=== PATIENT | female | born 1985 | race Caucasian/White ===

== ENCOUNTER → 2017-10-01 16:43 | Outpatient (CLI) | payer OTHER, SELFPAY ==
[2017-10-01 18:37] LABS: Thyroid Stim Hormone (TSH) 5.96 uIU/mL (0.358-3.74)
== END ==
PROVIDERS: Family Provider Family Medicine; PCP Family Medicine; Visit Provider Family Medicine
DX: E03.9 Hypothyroidism, unspecified (principal)
CPT/HCPCS: 36415; 84443

== ENCOUNTER → 2017-10-29 16:32 | Outpatient (CLI) | payer OTHER, SELFPAY ==
[2017-10-29 18:20] LABS: Free T3 2.7 pg/mL (2.18-3.98); Thyroid Stim Hormone (TSH) 1.72 uIU/mL (0.358-3.74)
== END ==
PROVIDERS: Family Provider Family Medicine; PCP Family Medicine; Visit Provider Family Medicine
DX: E03.9 Hypothyroidism, unspecified (principal)
CPT/HCPCS: 36415; 84443; 84481

== ENCOUNTER → 2018-07-22 17:47 | Outpatient (CLI) | payer OTHER, SELFPAY ==
[2018-07-22 18:06] LABS: Hematocrit 38.8 % (37-47); Hemoglobin 12.8 g/dl (12.0-15.0); Mean Corpuscular Hgb 29.6 pg (27.0-32.0); Mean Corpuscular Volume 89.6 fL (81-99); Mean Platelet Vol. 10.1 fl (6.2-12.0); Platelet Count 312 K/mm3 (150-450); RBC Distribution Width CV 12.5 % (11.6-14.6); Red Blood Count 4.33 M/mm3 (4.2-5.4); White Blood Count 7.6 K/mm3 (4.4-11.0)
[2018-07-22 18:12] LABS: Scan Indicated on CBC? Y/N NO
[2018-07-22 18:27] LABS: T4 Total, Thyroxin 7.7 ug/dL (4.8-13.9)
--- OUTSIDE RECORDS SUMMARY | 2018-09-16 23:29 | XMS RPT_ITS ---
:1985 Author Organization [place] Support Name Relationship Address Phone ARCELIA DICKERSON Unavailable [address] + [place] [address] SOEALOCSCH Unavailable [address] + [place] [address] SHANIQUA FRAGA Unavailable [address] [facility] + [place] [address] Arcelia Dickerson Unavailable [address] + [place] [address] SOEALOCSCH Unavailable [address] + [place] [address] Shaniqua Fraga Jr Unavailable [address] [facility] + [place] [address] ARCELIA DICKERSON Unavailable [address] + [place] [address] SOEALOCSCH Unavailable [address] + [place] [address] SHANIQUA FRAGA JR Unavailable [address] [facility] + [place] [address] ARCELIA DICKERSON Unavailable [address] + [place] [address] SOEALOCSCH Unavailable [address] + [place] [address] SHANIQUA FRAGA JR Unavailable [address] [facility] + [place] [address] ARCELIA DICKERSON Unavailable [address] + [place] [address] SOEALOCSCH Unavailable [address] + [place] [address] SHANIQUA FRAGA JR Unavailable [address] [facility] + [place] [address] Care Team Providers Name Role Phone JUAN JONES Referring Unavailable JUAN JONES Attending Unavailable JAMSHID, JUAN Diaz Referring Unavailable REBOLLAR, RENATA DWYER Attending Unavailable GURINDER, JUAN MICHELLE Referring Unavailable REBOLLAR, RENATA DWYER Admitting Unavailable AMBER, RENATA DWYER Attending Unavailable AMBER, RENATA DWYER Referring Unavailable JUAN JONES Referring Unavailable JUAN JONES Referring Unavailable Fairchild, Juan Attending Unavailable Fairchild, Juan Primary Care Unavailable Fairchild, Juan Attending Unavailable Fairchild, Juan Primary Care Unavailable Fermin Locke Attending Unavailable Fairchild, Juan Referring Unavailable Fairchild, Juan Primary Care Unavailable Fairchild, Juan Attending Unavailable Fairchild, Juan Attending Unavailable Fairchild, Juan Primary Care Unavailable Fairchild, Juan Referring Unavailable PROBLEMS PROBLEMS DATE TYPE CONDITION / CODE ATTENDING STATUS SOURCE 07/23/2018 Unknown E03.9 - Juan Fairchild Active [facility] Hypothyroidism, Community unspecified / Hospital E03.9(ICD-10) Repository 07/23/2018 Unknown D51.0 - Vitamin Juan Fairchild Active [facility] B12 deficiency Community anemia due to Hospital intrinsic factor Repository deficiency / D51.0(ICD-10) 12/08/2017 Active Other iron NA Active [facility] deficiency [place] anemias / Repository D50.8(ICD-10) 10/08/2017 Active 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, [place] unspecified / Repository K90.9(ICD-10) 10/08/2017 Active Iron deficiency NA Active [facility] anemia, [place] unspecified / Repository D50.9(ICD-10) PROCEDURES PROCEDURES No Procedure Records FoundRESULTS RESULTS CBC-COMPLETE BLOOD CNT Collected: 07/22/2018 Status: F Source: [place] NO DIFF [facility]:05 PM [facility] TYPE CODE TESTS RESULT OUT OF RANGE REFERENCE UNITS LAB L100.1000 4.4-11.0 K/mm3 Normal WBC 7.6 LAB L100.1200 4.2-5.4 M/mm3 Normal RBC 4.33 LAB L100.1300 12.0-15.0 g/dl Normal HGB 12.8 LAB L100.1400 37-47 % Normal HCT 38.8 LAB L100.1500 81-99 fL Normal MCV 89.6 LAB L100.1600 27.0-32.0 pg Normal MCH 29.6 LAB L100.1700 32-36 g/gl Normal MCHC 33.0 LAB L100.1810 11.6-14.6 % Normal RDW CV 12.5 LAB L100.1820 35.1-43.9 fl Normal RDW SD 41.0 LAB L100.1900 150-450 K/mm3 Normal PLT 312 LAB L100.2000 6.2-12.0 fl Normal MPV 10.1 Performed By: #### L100.0500 #### [facility] [address] [place], [address] T3 TOTAL - TRIIODOTHYRONINE Collected: 07/22/2018 Status: F Source: [place] 5:05 PM [facility] REPOSITORY TYPE CODE TESTS RESULT OUT OF RANGE REFERENCE UNITS LAB L501.9186 0.6-1.81 ng/mL Normal T3 Total 1.00 Performed By: #### L501.9186 #### [facility] [address] [place], [address] T4 TOTAL, THYROXIN Collected: 07/22/2018 Status: F Source: [place] 5:05 PM [facility] REPOSITORY TYPE CODE TESTS RESULT OUT OF RANGE REFERENCE UNITS LAB L501.9310 4.8-13.9 ug/dL T4 Normal THYROXIN 7.7 Performed By: #### L501.9310, L501.9520 #### [facility] [address] [place], [address] THYROID STIM HORMONE Collected: 07/22/2018 Status: F Source: [place] (TSH) 5:05 PM [facility] REPOSITORY TYPE CODE TESTS RESULT OUT OF RANGE REFERENCE UNITS LAB L501.9520 0.358-3.74 uIU/mL High TSH 16.60 Performed By: #### L501.9310, L501.9520 #### [facility] [address] [place], [address] LIPID PROFILE Collected: 05/14/2018 Status: F Source: [place] 8:45 AM [facility] REPOSITORY TYPE CODE TESTS RESULT OUT OF RANGE REFERENCE UNITS LAB L501.4900 200 mg/dL Normal CHOL 198 Result Comment: <200 mg/dL Desirable 200-240 mg/dL Borderline >240 mg/dL High Risk LAB L501.5000 mg/dL Normal TRIG 168 Result Comment: The drugs N-Acetylcysteine and Metamizole may falsely depress this assay. Serum Triglycerides Reference Interval Normal <150 mg/dL Borderline high 150 - 199 mg/dL High 200 - 499 mg/dL Very High > or = 500 mg/dL LAB L501.6400 mg/dL Low HDL 37 Result Comment: The drugs N-Acetylcysteine and Metamizole may falsely depress this assay. Reference Range HDL <40 mg/dL Low HDL Cholesterol HDL >or= 60 mg/dL High HDL Cholesterol LAB L501.6500 0-130 mg/dL Normal LDL 127 LAB L501.6600 5-40 mg/dL Normal VLDL 34 Performed By: #### L500.4100, L501.0100 #### [facility] [address] [place], [address] GLUCOSE Collected: 05/14/2018 Status: F Source: [place] 8:45 AM [facility] REPOSITORY TYPE CODE TESTS RESULT OUT OF RANGE REFERENCE UNITS LAB L501.0100 74-106 mg/dL Normal GLU 85 Result Comment: Please note revised GLUCOSE reference range effective 2017. Performed By: #### L500.4100, L501.0100 #### [facility] [address] [place], [address] JOE ABS GR + CBC Collected: 04/09/2018 Status: F Source: [place] 1:00 PM [facility] REPOSITORY TYPE CODE TESTS RESULT OUT OF REFERENCE UNITS RANGE LAB WWBC 3.70-11.00 k/uL [facility] WBC 7.63 LAB WRBC 3.90-5.20 m/uL [place] RBC 4.27 LAB WHGB 11.5-15.5 g/dL [place] Hemoglobin 13.0 LAB WHCT 36.0-46.0 % [place] Hematocrit 39.2 LAB WMCV 80.0-100.0 fL [place] MCV 91.8 LAB WMCH 26.0-34.0 pg [place] MCH 30.4 LAB WMCHC 30.5-36.0 g/dL [place] MCHC 33.2 LAB WRDW 11.5-15.0 % [place] RDW 12.5 LAB WPLT 150-400 k/uL [place] Platelet Cnt 259 LAB WMPV 9.0-12.7 fL Joe MPV 9.7 Result Comment: Test performed at: [facility] [place], [address] [place] [address]. LAB ABGRAN 1.45-7.50 k/uL Absol Gran 5.07 Count IRON AND TIBC Collected: 04/09/2018 Status: F Source: [place] 1:00 PM [facility] REPOSITORY TYPE CODE TESTS RESULT OUT OF REFERENCE UNITS RANGE LAB IRN 41-186 ug/dL Iron 93 LAB TIBC 232-386 ug/dL TIBC 312 LAB SAT 15-57 % Transferrin Saturatn 30 Performed By: #### IRON, FERR #### [facility] [address] [address] FERRITIN Collected: 04/09/2018 Status: F Source: [place] 1:00 PM [facility] REPOSITORY TYPE CODE TESTS RESULT OUT OF REFERENCE UNITS RANGE LAB FERR 14.7-205.1 ng/mL Ferritin 98.7 Performed By: #### IRON, FERR #### [facility] [address] [address] JOE CBC Collected: 12/08/2017 Status: F Source: [place] 11:50 AM [facility] REPOSITORY TYPE CODE TESTS RESULT OUT OF REFERENCE UNITS RANGE LAB WWBC 3.70-11.00 k/uL [place] WBC 8.04 LAB WRBC 3.90-5.20 m/uL [place] RBC 4.04 LAB WHGB 11.5-15.5 g/dL [place] Hemoglobin 12.5 LAB WHCT 36.0-46.0 % [place] Hematocrit 37.3 LAB WMCV 80.0-100.0 fL [place] MCV 92.3 LAB WMCH 26.0-34.0 pg [place] MCH 30.9 LAB WMCHC 30.5-36.0 g/dL [place] MCHC 33.5 LAB WRDW 11.5-15.0 % [facility] RDW 12.8 LAB WPLT 150-400 k/uL [place] Platelet Cnt 291 LAB WMPV 9.0-12.7 fL Joe MPV 10.1 Result Comment: Test performed at: [facility] [place], [address] [place] [address]. IRON AND TIBC Collected: 12/08/2017 Status: F Source: [place] 11:50 AM [facility] REPOSITORY TYPE CODE TESTS RESULT OUT OF REFERENCE UNITS RANGE LAB IRN 41-186 ug/dL Iron 83 LAB TIBC 232-386 ug/dL TIBC 263 LAB SAT 15-57 % Transferrin Saturatn 32 Performed By: #### IRON, FERR #### [facility] [address] [address] FERRITIN Collected: 12/08/2017 Status: F Source: [place] 11:50 AM [facility] REPOSITORY TYPE CODE TESTS RESULT OUT OF REFERENCE UNITS RANGE LAB FERR 14.7-205.1 ng/mL Ferritin 147.3 Performed By: #### IRON, FERR #### [facility] [address] [address] NURSING PROG Observed: 11/18/2017 Status: COMPLETED Source: [place] 9:05 AM [facility] REPOSITORY HNO ID: [id number] Author: Annamarie Sanchez RN Service: (none) Author Type: Registered Nurse Type: Nursing Progress Note Filed: 11/18/2017 9:10 AM Note Text: Patient did not experience a fall prior to discharge. Patient did not experience a burn prior to discharge. Annamarie Sanchez RN PT ED Observed: 11/18/2017 Status: COMPLETED Source: [place] 9:03 AM [facility] REPOSITORY HNO ID: [id number] Author: Annamarie Sanchez RN Service: (none) Author Type: Registered Nurse Type: Patient Education Filed: 11/18/2017 9:04 AM Note Text: POST OP LEARNING RESPONSE INSTRUCTION PROVIDED TO: Patient and family member METHOD OF INSTRUCTION: Individual instruction Written instruction - handouts Verbal instruction PATIENT / FAMILY RESPONSE: Information received as demonstrated by interest and questions FOLLOW-UP PLAN: Follow up phone call. Contact information given. SUPPLEMENTAL MATERIAL: Procedure discharge instructions REFERRAL (RECOMMENDATION): None Electronically Signed By: Annamarie Sanchez RN In Department: AMBULATORY SURGERY NURSING PROG Observed: 11/18/2017 Status: COMPLETED Source: [place] 8:18 AM [facility] REPOSITORY HNO ID: [id number] Author: Annamarie Sanchez RN Service: (none) Author Type: Registered Nurse Type: Nursing Progress Note Filed: 11/18/2017 9:12 AM Note Text: Arrived in phase II via cart. Left lateral position. Sedated, but responds to verbal stimuli. Color normal; skin warm and dry. Respirations wnl and unlabored. Abdomen soft and with + bowel sounds in quads X 4. Family at bedside. Patient resting comfortably. Dr. Rebollar at bedside to review procedure and recommendations. Annamarie Sanchez RN NURSING PROG Observed: 11/18/2017 Status: COMPLETED Source: [place] 8:17 AM [facility] REPOSITORY HNO ID: [id number] Author: Alexandria Stark RN Service: Nursing Author Type: Registered Nurse Type: Nursing Progress Note Filed: 11/18/2017 8:17 AM Note Text: Patient did not experience a fall within the Intraoperative area. Patient did not experience a burn within the Intraoperative area. Alexandria Stark RN NURSING PROG Observed: 11/18/2017 Status: COMPLETED Source: [place] 7:27 AM [facility] REPOSITORY HNO ID: [id number] Author: Annamarie Sanchez RN Service: (none) Author Type: Registered Nurse Type: Nursing Progress Note Filed: 11/18/2017 7:27 AM Note Text: [facility] PRE-OP NURSING HAND OFF NOTE SBAR Hand off given to Alexandria Stark RN. Hand off was communicated verbally and at the patient's bedside and all questions were answered. FALLS/CABALLERO Patient did not experience a fall within the Preoperative area. Patient did not experience a burn within the Preoperative area. Annamarie Sanchez RN PT ED Observed: 11/18/2017 Status: COMPLETED Source: [place] 7:06 AM [facility] REPOSITORY HNO ID: [id number] Author: Annamarie Sanchez RN Service: (none) Author Type: Registered Nurse Type: Patient Education Filed: 11/18/2017 7:08 AM Note Text: Discharge Instructions were reviewed pre-operatively with the patient. All questions and concerns were addressed. Annamarie Sanchez RN PRE OP LEARNING ASSESSMENT PROCEDURE/SURGERY: GI PROCEDURES: Colonoscopy and EGD READINESS TO LEARN COGNITIVE ABILITY: Alert and oriented MOTIVATION TO LEARN: Interested FAMILY SUPPORT: Unable to assess - Family not present PATIENT LEARNS BEST BY: Multiple Methods FACTORS AFFECTING LEARNING: None PHYSICAL LIMITATIONS AFFECTING LEARNING: None Electronically Signed By: Annamarie Sanchez RN In Department: AMBULATORY SURGERY HISTORY PHYSICAL Observed: 11/17/2017 Status: COMPLETED Source: [place] 8:08 PM [facility] REPOSITORY HNO ID: [id number] Author: Renata Rebollar Service: (none) Author Type: Physician Type: HANDP Filed: 11/17/2017 8:09 PM Note Text: Hazel Fraga 1985 ? REFERRING PHYSICIAN: Juan Fairchild MD ? CHIEF COMPLAINT: New Patient; for colonoscopy; and iron defiency anemia ? HPI: The patient is a 32 year old female presents with anemia. Persistent despite appropriate treatment. Has rare heartburn. Denies melena. Denies blood in stools. No family history of colon cancer. ? PAST MEDICAL HISTORY Diagnosis Date - Esophageal reflux ? - Migraines ? - Pernicious anemia ? - Unspecified hypothyroidism ? - Vitamin B 12 deficiency ? ? ? PAST SURGICAL HISTORY Procedure Laterality Date - DELIVERY ONLY ? 2003 AND 2007 ? , low cervical x 2 ? PAST INJURIES Denies head injuries, has had finger fractures ? Current Outpatient Prescriptions: nortriptyline (PAMELOR) 50 mg capsule ? levothyroxine (SYNTHROID) 200 mcg tablet Take 200 mcg by mouth once daily. cyanocobalamin 1,000 mcg/mL soln Inject 1 mL intramuscularly once every month. Syringe with Needle, Disp, 3 mL 25 x 1 1/2 syrg For use with monthly home B12 injections. acetaminophen (TYLENOL EXTRA STRENGTH) 500 mg tablet Take 500 mg by mouth as needed. ? ALLERGIES: Biaxin [Clarithromycin]; Seasonal Allergies ? PERSONAL HISTORY: Social History Marital status: Spouse name: Sandor Years of education: Number of children: 1 Occupational History Occupation Employer Comment [employer]* Social History Main Topics Smoking status: Never Smoker Smokeless status: Never Used Alcohol use: Yes Comment: Occasionally Drug use: No Sexual activity: Yes Partners with: Male ? FAMILY HISTORY Problem Relation Age of Onset - Thyroid Mother ? - Heart Father ? - Heart Other ? ? ? MATERNAL GREAT AUNT - Breast Cancer Other ? ? ? MATERNAL GREAT AUNT - Heart Maternal Grandfather ? - Cancer Maternal Grandfather ? - Cancer Maternal Aunt ? ? ? Thyroid cancer ? REVIEW OF SYSTEMS: General: The patient denies fatigue, denies weight loss, denies weight gain, denies feeling hot, and denies feelings of cold. Eyes: The patient denies glaucoma, denies eye injury/surgery, wears glasses or contacts. Ear/Nose/Throat: The patient NOTES allergies, denies hayfever, denies ear infections, and denies bloody noses. Cardiovascular: The patient denies chest pain, denies heart disease, denies high blood pressure,denies cardiac stent, denies prior heart attack, denies irregular heart beat, denies high cholesterol, denies poor circulation, denies heart failure, other cardiac issues, denies claudication, denies cold feet, denies peripheral arterial stent. Respiratory: The patient denies tuberculosis, denies pneumonia, denies frequent cough, denies pulmonary embolism, denies shortness of breath, and denies coughing up blood. Gastrointestinal: The patient denies difficulty swallowing, denies acid reflux, denies ulcers, denies vomiting, denies jaundice/hepatitis, denies gallbladder problems, denies black or tarry stools, denies hemorrhoids, denies bleeding from rectum, denies diverticulitis, denies constipation, denies diarrhea, denies loss of stool control, and denies hernias. Kidney/Bladder: The patient denies kidney stones, denies urine infections, and denies bloody urine. Skin: The patient denies a history of skin cancer, denies bleeding/changing moles, and denies a history of skin rash. Neurologic: The patient denies a history of epilepsy/convulsions, NOTES headaches, denies head/spinal injuries, and denies stroke/TIA. Psychiatric: The patient denies psychiatric medications, denies depression, and denies voices, denies substance abuse. Endocrine: The patient NOTES thyroid disorders, denies diabetes, and denies hormonal problems. Hematologic: The patient NOTES a history of bruising, denies bleeding, and NOTES anemia, denies blood clots. Infections: The patient denies a history of measles and mumps, denies rheumatic fever, and denies sexually transmitted diseases. Musculoskeletal: The patient denies back pain/injury, denies back problems, denies sciatica, denies knee/foot trouble, denies arthritis, or denies gout. ?? PHYSICAL EXAMINATION: General: The patient is 32 year old female, well nourished, well hydrated in no acute distress. The patient is oriented to time, place, and person. VITALS: Blood pressure 120/86, pulse 88, height 167.6 cm (5' 6), weight 86.6 kg (191 lb) Body mass index is 30.83 kg/(m2). Head ? Normocephalic. EOM intact with sclera clear and no icterus noted. Mouth with mucus membranes moist. Neck - supple with no jugular venous distention noted. Trachea is midline.. No masses noted. Lungs ? clear to auscultationd. Normal breath sounds . No rales/rhonchi/wheezing noted. No labored breathing noted, such as retractions. Heart ? normal S1 and S2 auscultated. No rubs/clicks/murmurs noted. Regular rate. Abdomen ? soft and benign. Normal bowel sounds. No abdominal bruits noted. Extremities ? no calf tenderness noted. . Skin ? normal skin integrity. Neurological ? non focal Psych ? calm and appropriate ? IMPRESSION: anemia ? PLAN: I have discussed the above with the patient. I have offered evaluation with colonoscopy and EGD. I have explained the procedure to the patient. I have counseled the patient as to the risks of the procedure, including but not limited to: infection, bleeding, injury to any blood vessels/nerves, scar tissue, injury to any intraabdominal organs such as liver/spleen, perforation of the GI tract, inability to complete the procedure, complications of anesthesia, etc. ? the patient understands. The patient wishes to proceed. Colon cleansing preparation explained to patient. ? I have answered all questions to the patient?s satisfaction and the patient has no further questions. . Diagnoses: (D50.8) Other iron deficiency anemia (primary encounter diagnosis) ? 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 Is patient in pain?: No Allergies No Known Allergies Allergy (Verified 11/10/17 17:29) Medications Levothyroxine [Synthroid] 200 mcg PO DAILY 12/05/14 [History Confirmed 11/10/17] Multivitamin [Multiple Vitamins] 1 ea PO DAILY 02/09/17 [History Confirmed 11/10/17] amoxicillin 875 mg-potassium clavulanate 125 mg tablet 1 tab PO Q12H 10 Days #20 tab 11/10/17 [Rx Confirmed 11/10/17] meclizine 25 mg tablet 25 mg PO BID PRN #10 tab 11/10/17 [Rx Confirmed 11/10/17] nortriptyline 50 mg capsule PO 15 Days #30 11/10/17 [History Confirmed 11/10/17] PFSH Medical History history of ablation (Acute) Surgical History History of (Acute) History of D AND C (Acute) Social History Smoking Status: Never smoker alcohol intake: never HPI HPI Details: HAZEL FRAGA, is a 32 F who presents to the office today for 5 days of sinus pressure and pain particularly to just above her jaws. Patient additionally complains of vertigo and states that she has had cases of vertigo in the past due to colds and sinus infections. She denies any change in mental status, falls or near syncopal episodes. No fever, chills, sweats. No nausea, vomiting, diarrhea. No other associated symptoms or alleviating/aggravating factors. ROS Const Constitutional: No fever(s), chills, night sweats, headache(s), abnormal sleep pattern or weakness Eyes Eyes: No visual disturbances ENT ENT: Positive for nasal congestion, sinus pressure, sinus pain and nasal discharge; no headache(s), ear pain, sore throat or abnormal hearing Resp Respiratory: No cough or shortness of breath Cardio Cardiology: No shortness of breath, irregular heart rhythm or fast heart rate Musc Musculoskeletal: No abnormal walking or tingling Neuro Neurology: Positive for unsteady gait/balance and dizziness; no headache(s), confusion, weakness, abnormal hearing, abnormal walking, lack of coordination, memory loss, fainting, tingling or visual disturbances Psych Psychiatric: No abnormal sleep pattern, No confusion, No memory loss Exam Const General: cooperative, healthy appearing HENMT Head: normal to inspection Ears: hearing grossly normal bilaterally, TM's normal bilaterally, EAC's normal Nose: nasal discharge purulent Face and sinus: sinus tenderness frontal and maxillary Mouth: oral mucosae normal Throat: abnormal tonsil bilaterally, postnasal drainage Resp Effort AND Inspection: normal respiratory effort Auscultation: Bilateral: Clear to Auscultation Cardio Palpation: normal PMI Rate: regular rate Rhythm: regular rhythm Neuro General: alert, CN's II-XI intact bilaterally, oriented x3, No [place] Hallpike Cranial Nerves: PERRL Cognition: normal cognition Speech: speech normal Gait: normal gait Motor: muscle tone normal throughout, strength 5/5 throughout, no pronator drift Sensory Exam: no sensory deficits noted Psych Appearance: grossly normal Mental Status: mental status grossly normal Assessment AND Plan Problems 1. Acute non-recurrent maxillary sinusitis J01.00 Status Acute 2. Vertigo R42 Status Acute Plan Antivert and Augmentin as prescribed today. Patient advised to follow-up with her PCP in 3-5 days or sooner if worse. Encouraged to get plenty of rest, drink lots of clear liquids, and use Tylenol or Ibuprofen (unless contraindicated) for fever and comfort. Patient also educated on other symptomatic management techniques. To be seen in 7-10 days if no improvement; sooner if worsening of symptoms. Patient advised of potential red flags when appropriate report to the ED. Patient verbalized understanding of all the above. This note was generated with Arc[employer] software. It may contain incorrect words, spelling, and punctuation that were not noted in checking the note before signing. Medications New: amoxicillin-pot clavulanate 875-125 mg (Aug tab PO Q12H 10 days J01.90 BLUE Abbott mentin) Discontinued: hydrocodone-acetaminophen 5-325 mg 1 - 2 ea PO Q6H PRN PRN Mod-Severe Blue D[place] Discontinued Reason: Pt no longer takin () ing Coding Level of Care Code Off vis,new,level 3 Diagnoses Acute non-recurrent maxillary sinusitis J01.00 Sinusitis location: maxillary Recurrence: non-recurrent Vertigo R42 11/10/17 3705 <Electronically signed by Fermin NAJERA> Date Fermin NAJERA Cosigner Signature: Date (if applicable) CC: FREE T3 Collected: 10/29/2017 Status: F Source: [place] 4:33 PM [facility] REPOSITORY TYPE CODE TESTS RESULT OUT OF RANGE REFERENCE UNITS LAB L501.59620 2.18-3.98 pg/mL Normal FREE T3 2.7 Performed By: #### L501.01677, L501.9520 #### [facility] [address] [place], [place], [address] THYROID STIM HORMONE Collected: 10/29/2017 Status: F Source: [place] (TSH) 4:33 PM [facility] REPOSITORY TYPE CODE TESTS RESULT OUT OF RANGE REFERENCE UNITS LAB L501.9520 0.358-3.74 uIU/mL Normal TSH 1.72 Performed By: #### L501.20437, L501.2620 #### [facility] [address] [place], [place], [address] PROGRESS Observed: 10/24/2017 Status: COMPLETED Source: [place] 9:45 PM [facility] REPOSITORY HNO ID: [id number] Author: Renata Rebollar Service: (none) Author Type: Physician Type: Progress Notes Filed: 10/25/2017 4:07 PM Note Text: Hazel Fraga 1985 REFERRING PHYSICIAN: Juan Fairchild MD CHIEF COMPLAINT: New Patient; for colonoscopy; and iron defiency anemia HPI: The patient is a 32 year old female presents with anemia. Persistent despite appropriate treatment. Has rare heartburn. Denies melena. Denies blood in stools. No family history of colon cancer. PAST MEDICAL HISTORY Diagnosis Date - Esophageal reflux - Migraines - Pernicious anemia - Unspecified hypothyroidism - Vitamin B 12 deficiency PAST SURGICAL HISTORY Procedure Laterality Date - DELIVERY ONLY 2003 AND 2007 , low cervical x 2 PAST INJURIES Denies head injuries, has had finger fractures Current Outpatient Prescriptions: nortriptyline (PAMELOR) 50 mg capsule levothyroxine (SYNTHROID) 200 mcg tablet Take 200 mcg by mouth once daily. cyanocobalamin 1,000 mcg/mL soln Inject 1 mL intramuscularly once every month. Syringe with Needle, Disp, 3 mL 25 x 1 1/2 syrg For use with monthly home B12 injections. acetaminophen (TYLENOL EXTRA STRENGTH) 500 mg tablet Take 500 mg by mouth as needed. ALLERGIES: Biaxin [Clarithromycin]; Seasonal Allergies PERSONAL HISTORY: Social History Marital status: Spouse name: Sandor Years of education: Number of children: 1 Occupational History Occupation Employer [employer] Social History Main Topics Smoking status: Never Smoker Smokeless status: Never Used Alcohol use: Yes Comment: Occasionally Drug use: No Sexual activity: Yes Partners with: Male FAMILY HISTORY Problem Relation Age of Onset - Thyroid Mother - Heart Father - Heart Other MATERNAL GREAT AUNT - Breast Cancer Other MATERNAL GREAT AUNT - Heart Maternal Grandfather - Cancer Maternal Grandfather - Cancer Maternal Aunt Thyroid cancer REVIEW OF SYSTEMS: General: The patient denies fatigue, denies weight loss, denies weight gain, denies feeling hot, and denies feelings of cold. Eyes: The patient denies glaucoma, denies eye injury/surgery, wears glasses or contacts. Ear/Nose/Throat: The patient NOTES allergies, denies hayfever, denies ear infections, and denies bloody noses. Cardiovascular: The patient denies chest pain, denies heart disease, denies high blood pressure,denies cardiac stent, denies prior heart attack, denies irregular heart beat, denies high cholesterol, denies poor circulation, denies heart failure, other cardiac issues, denies claudication, denies cold feet, denies peripheral arterial stent. Respiratory: The patient denies tuberculosis, denies pneumonia, denies frequent cough, denies pulmonary embolism, denies shortness of breath, and denies coughing up blood. Gastrointestinal: The patient denies difficulty swallowing, denies acid reflux, denies ulcers, denies vomiting, denies jaundice/hepatitis, denies gallbladder problems, denies black or tarry stools, denies hemorrhoids, denies bleeding from rectum, denies diverticulitis, denies constipation, denies diarrhea, denies loss of stool control, and denies hernias. Kidney/Bladder: The patient denies kidney stones, denies urine infections, and denies bloody urine. Skin: The patient denies a history of skin cancer, denies bleeding/changing moles, and denies a history of skin rash. Neurologic: The patient denies a history of epilepsy/convulsions, NOTES headaches, denies head/spinal injuries, and denies stroke/TIA. Psychiatric: The patient denies psychiatric medications, denies depression, and denies voices, denies substance abuse. Endocrine: The patient NOTES thyroid disorders, denies diabetes, and denies hormonal problems. Hematologic: The patient NOTES a history of bruising, denies bleeding, and NOTES anemia, denies blood clots. Infections: The patient denies a history of measles and mumps, denies rheumatic fever, and denies sexually transmitted diseases. Musculoskeletal: The patient denies back pain/injury, denies back problems, denies sciatica, denies knee/foot trouble, denies arthritis, or denies gout. PHYSICAL EXAMINATION: General: The patient is 32 year old female, well nourished, well hydrated in no acute distress. The patient is oriented to time, place, and person. VITALS: Blood pressure 120/86, pulse 88, height 167.6 cm (5' 6), weight 86.6 kg (191 lb) Body mass index is 30.83 kg/(m2). Head ? Normocephalic. EOM intact with sclera clear and no icterus noted. Mouth with mucus membranes moist. Neck - supple with no jugular venous distention noted. Trachea is midline.. No masses noted. Lungs ? clear to auscultationd. Normal breath sounds . No rales/rhonchi/wheezing noted. No labored breathing noted, such as retractions. Heart ? normal S1 and S2 auscultated. No rubs/clicks/murmurs noted. Regular rate. Abdomen ? soft and benign. Normal bowel sounds. No abdominal bruits noted. Extremities ? no calf tenderness noted. . Skin ? normal skin integrity. Neurological ? non focal Psych ? calm and appropriate Assessment IMPRESSION: anemia PLAN: I have discussed the above with the patient. I have offered evaluation with colonoscopy and EGD. I have explained the procedure to the patient. I have counseled the patient as to the risks of the procedure, including but not limited to: infection, bleeding, injury to any blood vessels/nerves, scar tissue, injury to any intraabdominal organs such as liver/spleen, perforation of the GI tract, inability to complete the procedure, complications of anesthesia, etc. ? the patient understands. The patient wishes to proceed. Colon cleansing preparation explained to patient. I have answered all questions to the patient?s satisfaction and the patient has no further questions. Greater than 50% of this patient encounter was dedicated to face to face discussion with the patient. . Diagnoses: (D50.8) Other iron deficiency anemia (primary encounter diagnosis) Renata Rebollar MD CNOV Observed: 10/21/2017 Status: COMPLETED Source: [place] 3:40 PM [facility] Office Visit ([facility]) HAZEL FRAGA ([id number]) 1985 F Date Time Provider Department 10/21/17 3:40 PM RENATA REBOLLAR During your visit today, we recorded the following information about you: Pulse Blood pressure Weight Height 88/minute 120/86 86.6 kg 1.676 m Shaneka Omalley Yusra 10/21/2017 4:04 PM Signed REVIEW OF SYSTEMS: General: The patient denies fatigue, denies weight loss, denies weight gain, denies feeling hot, and denies feelings of cold. Eyes: The patient denies glaucoma, denies eye injury/surgery, wears glasses or contacts. Ear/Nose/Throat: The patient NOTES allergies, denies hayfever, denies ear infections, and denies bloody noses. Cardiovascular: The patient denies chest pain, denies heart disease, denies high blood pressure,denies cardiac stent, denies prior heart attack, denies irregular heart beat, denies high cholesterol, denies poor circulation, denies heart failure, other cardiac issues, denies claudication, denies cold feet, denies peripheral arterial stent. Respiratory: The patient denies tuberculosis, denies pneumonia, denies frequent cough, denies pulmonary embolism, denies shortness of breath, and denies coughing up blood. Gastrointestinal: The patient denies difficulty swallowing, denies acid reflux, denies ulcers, denies vomiting, denies jaundice/hepatitis, denies gallbladder problems, denies black or tarry stools, denies hemorrhoids, denies bleeding from rectum, denies diverticulitis, denies constipation, denies diarrhea, denies loss of stool control, and denies hernias. Kidney/Bladder: The patient denies kidney stones, denies urine infections, and denies bloody urine. Skin: The patient denies a history of skin cancer, denies bleeding/changing moles, and denies a history of skin rash. Neurologic: The patient denies a history of epilepsy/convulsions, NOTES headaches, denies head/spinal injuries, and denies stroke/TIA. Psychiatric: The patient denies psychiatric medications, denies depression, and denies voices, denies substance abuse. Endocrine: The patient NOTES thyroid disorders, denies diabetes, and denies hormonal problems. Hematologic: The patient NOTES a history of bruising, denies bleeding, and NOTES anemia, denies blood clots. Infections: The patient denies a history of measles and mumps, denies rheumatic fever, and denies sexually transmitted diseases. Musculoskeletal: The patient denies back pain/injury, denies back problems, denies sciatica, denies knee/foot trouble, denies arthritis, or denies gout. When was patient's last Mammogram screening? N/A Last Colonoscopy: None Shaneka Rebollar MD 10/25/2017 4:07 PM Signed Hazel Frgaa 1985 REFERRING PHYSICIAN: Juan Fairchild MD CHIEF COMPLAINT: New Patient; for colonoscopy; and iron defiency anemia HPI: The patient is a 32 year old female presents with anemia. Persistent despite appropriate treatment. Has rare heartburn. Denies melena. Denies blood in stools. No family history of colon cancer. PAST MEDICAL HISTORY Diagnosis Date - Esophageal reflux - Migraines - Pernicious anemia - Unspecified hypothyroidism - Vitamin B 12 deficiency PAST SURGICAL HISTORY Procedure Laterality Date - DELIVERY ONLY 2003 ANDamp; 2007 , low cervical x 2 PAST INJURIES Denies head injuries, has had finger fractures Current Outpatient Prescriptions: nortriptyline (PAMELOR) 50 mg capsule levothyroxine (SYNTHROID) 200 mcg tablet Take 200 mcg by mouth once daily. cyanocobalamin 1,000 mcg/mL soln Inject 1 mL intramuscularly once every month. Syringe with Needle, Disp, 3 mL 25 x 1 1/2 ANDquot; syrg For use with monthly home B12 injections. acetaminophen (TYLENOL EXTRA STRENGTH) 500 mg tablet Take 500 mg by mouth as needed. ALLERGIES: Biaxin [Clarithromycin]; Seasonal Allergies PERSONAL HISTORY: Social History Marital status: Spouse name: Sandor Years of education: Number of children: 1 Occupational History Occupation Employer [employer]* Social History Main Topics Smoking status: Never Smoker Smokeless status: Never Used Alcohol use: Yes Comment: Occasionally Drug use: No Sexual activity: Yes Partners with: Male FAMILY HISTORY Problem Relation Age of Onset - Thyroid Mother - Heart Father - Heart Other MATERNAL GREAT AUNT - Breast Cancer Other MATERNAL GREAT AUNT - Heart Maternal Grandfather - Cancer Maternal Grandfather - Cancer Maternal Aunt Thyroid cancer REVIEW OF SYSTEMS: General: The patient denies fatigue, denies weight loss, denies weight gain, denies feeling hot, and denies feelings of cold. Eyes: The patient denies glaucoma, denies eye injury/surgery, wears glasses or contacts. Ear/Nose/Throat: The patient NOTES allergies, denies hayfever, denies ear infections, and denies bloody noses. Cardiovascular: The patient denies chest pain, denies heart disease, denies high blood pressure,denies cardiac stent, denies prior heart attack, denies irregular heart beat, denies high cholesterol, denies poor circulation, denies heart failure, other cardiac issues, denies claudication, denies cold feet, denies peripheral arterial stent. Respiratory: The patient denies tuberculosis, denies pneumonia, denies frequent cough, denies pulmonary embolism, denies shortness of breath, and denies coughing up blood. Gastrointestinal: The patient denies difficulty swallowing, denies acid reflux, denies ulcers, denies vomiting, denies jaundice/hepatitis, denies gallbladder problems, denies black or tarry stools, denies hemorrhoids, denies bleeding from rectum, denies diverticulitis, denies constipation, denies diarrhea, denies loss of stool control, and denies hernias. Kidney/Bladder: The patient denies kidney stones, denies urine infections, and denies bloody urine. Skin: The patient denies a history of skin cancer, denies bleeding/changing moles, and denies a history of skin rash. Neurologic: The patient denies a history of epilepsy/convulsions, NOTES headaches, denies head/spinal injuries, and denies stroke/TIA. Psychiatric: The patient denies psychiatric medications, denies depression, and denies voices, denies substance abuse. Endocrine: The patient NOTES thyroid disorders, denies diabetes, and denies hormonal problems. Hematologic: The patient NOTES a history of bruising, denies bleeding, and NOTES anemia, denies blood clots. Infections: The patient denies a history of measles and mumps, denies rheumatic fever, and denies sexually transmitted diseases. Musculoskeletal: The patient denies back pain/injury, denies back problems, denies sciatica, denies knee/foot trouble, denies arthritis, or denies gout. PHYSICAL EXAMINATION: General: The patient is 32 year old female, well nourished, well hydrated in no acute distress. The patient is oriented to time, place, and person. VITALS: Blood pressure 120/86, pulse 88, height 167.6 cm (5' 6ANDquot;), weight 86.6 kg (191 lb) Body mass index is 30.83 kg/(m2). Head ? Normocephalic. EOM intact with sclera clear and no icterus noted. Mouth with mucus membranes moist. Neck - supple with no jugular venous distention noted. Trachea is midline.. No masses noted. Lungs ? clear to auscultationd. Normal breath sounds . No rales/rhonchi/wheezing noted. No labored breathing noted, such as retractions. Heart ? normal S1 and S2 auscultated. No rubs/clicks/murmurs noted. Regular rate. Abdomen ? soft and benign. Normal bowel sounds. No abdominal bruits noted. Extremities ? no calf tenderness noted. . Skin ? normal skin integrity. Neurological ? non focal Psych ? calm and appropriate Assessment IMPRESSION: anemia PLAN: I have discussed the above with the patient. I have offered evaluation with colonoscopy and EGD. I have explained the procedure to the patient. I have counseled the patient as to the risks of the procedure, including but not limited to: infection, bleeding, injury to any blood vessels/nerves, scar tissue, injury to any intraabdominal organs such as liver/spleen, perforation of the GI tract, inability to complete the procedure, complications of anesthesia, etc. ? the patient understands. The patient wishes to proceed. Colon cleansing preparation explained to patient. I have answered all questions to the patient?s satisfaction and the patient has no further questions. Greater than 50% of this patient encounter was dedicated to face to face discussion with the patient. . Diagnoses: (D50.8) Other iron deficiency anemia (primary encounter diagnosis) Renata Rebollar MD Referring Provider: JUAN FAIRCHILD [[id number]] Allergies As of Date: 10/21/2017 Noted Allergy Reaction BIAXIN (CLARITHROMYCIN) 04/01/2007 11 - Vomiting SEASONAL ALLERGIES 05/24/2015 14 - Other: See Comments Comments: nasal congestion and drainage Date Reviewed: 10/21/2017 Reviewed by: Shaneka Omalley Ma - Fully Assessed Reason for Visit: New Patient [172] for colonoscopy [Other] iron defiency anemia [Other] Primary Visit Diagnosis:Other iron deficiency anemia [D50.8] Order(s):ROSY PT ED DIGESTIVE DISEASES [[id number]] Order #: [id number]. #:[id number]: 1 [] peg 3350-Electrolytes (GOLYTELY) 236-22.74-6.74 -5.86 gram suspensionTake 4,000 mL by mouth one time only for 1 dose. Refer to printed prep instructions from your doctor.Disp: 1 BottleRfl: 0 COLONOSCOPY - DIAGNOSTIC [[id number]] Order #: [id number] FUTURE EGD [[id number]] Order #: [id number] FUTURE Prescriptions as of 10/21/2017 Sig: NORTRIPTYLINE 50 MG CAPSULE LEVOTHYROXINE 200 MCG TABLET Take 200 mcg by mouth once da* CYANOCOBALAMIN (VIT B-12) 1,0* Inject 1 mL intramuscularly o* SYRINGE WITH NEEDLE 3 ML 25 X* For use with monthly home B12* ACETAMINOPHEN 500 MG TABLET Take 500 mg by mouth as neede* PEG 3350-ELECTROLYTES 236 GRA* Take 4,000 mL by mouth one ti* Problem List As Of Date 10/21/2017 Noted Resolved Other malaise and fatigue [R53.81, R53.83] INVALID FOR*10/08/2017 HYPOTHYROIDISM NOS [E03.9] INVALID FOR* B12 deficiency [E53.8] INVALID FOR* ROSE (iron deficiency anemia) [D50.9] INVALID FOR* Pernicious anemia [D51.0] INVALID FOR* Iron malabsorption [K90.9] INVALID FOR* Visit Notes: >> Shaneka Lyssa Meng ThuOct 21, 2017 4:02 PM Status: Signed REVIEW OF SYSTEMS: General: The patient denies fatigue, denies weight loss, denies weight gain, denies feeling hot, and denies feelings of cold. Eyes: The patient denies glaucoma, denies eye injury/surgery, wears glasses or contacts. Ear/Nose/Throat: The patient NOTES allergies, denies hayfever, denies ear infections, and denies bloody noses. Cardiovascular: The patient denies chest pain, denies heart disease, denies high blood pressure,denies cardiac stent, denies prior heart attack, denies irregular heart beat, denies high cholesterol, denies poor circulation, denies heart failure, other cardiac issues, denies claudication, denies cold feet, denies peripheral arterial stent. Respiratory: The patient denies tuberculosis, denies pneumonia, denies frequent cough, denies pulmonary embolism, denies shortness of breath, and denies coughing up blood. Gastrointestinal: The patient denies difficulty swallowing, denies acid reflux, denies ulcers, denies vomiting, denies jaundice/hepatitis, denies gallbladder problems, denies black or tarry stools, denies hemorrhoids, denies bleeding from rectum, denies diverticulitis, denies constipation, denies diarrhea, denies loss of stool control, and denies hernias. Kidney/Bladder: The patient denies kidney stones, denies urine infections, and denies bloody urine. Skin: The patient denies a history of skin cancer, denies bleeding/changing moles, and denies a history of skin rash. Neurologic: The patient denies a history of epilepsy/convulsions, NOTES headaches, denies head/spinal injuries, and denies stroke/TIA. Psychiatric: The patient denies psychiatric medications, denies depression, and denies voices, denies substance abuse. Endocrine: The patient NOTES thyroid disorders, denies diabetes, and denies hormonal problems. Hematologic: The patient NOTES a history of bruising, denies bleeding, and NOTES anemia, denies blood clots. Infections: The patient denies a history of measles and mumps, denies rheumatic fever, and denies sexually transmitted diseases. Musculoskeletal: The patient denies back pain/injury, denies back problems, denies sciatica, denies knee/foot trouble, denies arthritis, or denies gout. When was patient's last Mammogram screening? N/A Last Colonoscopy: None Shaneka Omalley Ma Prescriptions ordered this encounter Disp Refills Start End PEG 3350-ELECTROLYTES 236 GRAM-22.74* 1 Jesús* 0 10/21/2017 10/21/2017 Route: ORAL Sig: Take 4,000 mL by mouth one time only for 1 dose. Refer to printed prep instructions from your doctor. Letter Text Encounter Status:Closed by MD RENATA REBOLLAR on 10/25/17 HOSP Observed: 10/21/2017 Status: COMPLETED Source: [place] 12:00 AM [facility] Patient:Hazel Fraga MRN: <[id number]> Height:5' 6(1.676 m) Weight:190 lb 14.7 oz (86.6 kg) Outpatient Medications as of 3/28/18: nortriptyline (PAMELOR) 50 mg capsule levothyroxine (SYNTHROID) 200 mcg tablet cyanocobalamin 1,000 mcg/mL soln Syringe with Needle, Disp, 3 mL 25 x 1 1/2 syrg acetaminophen (TYLENOL EXTRA STRENGTH) 500 mg tablet Admission/Clinic Administered Medications as of 11/18/17: lactated ringers infusion Problem List: Unspecified hypothyroidism [E03.9] B12 deficiency [E53.8] ROSE (iron deficiency anemia) [D50.9] Pernicious anemia [D51.0] Iron malabsorption [K90.9] Allergies: Biaxin [Clarithromycin] Seasonal Allergies Date Verified: 11/18/17 Lab Values No results within the last 30 days for the following basenames: K,HCT Progress Notes ([facility]): Robert Fontenot Surg Coord 10/21/2017 4:28 PM Signed 11-18-2017 COLON/egd Robert Fontenot Surg Coord Progress Notes ([facility]): Shaneka Omalley Ma 10/21/2017 4:04 PM Signed REVIEW OF SYSTEMS: General: The patient denies fatigue, denies weight loss, denies weight gain, denies feeling hot, and denies feelings of cold. Eyes: The patient denies glaucoma, denies eye injury/surgery, wears glasses or contacts. Ear/Nose/Throat: The patient NOTES allergies, denies hayfever, denies ear infections, and denies bloody noses. Cardiovascular: The patient denies chest pain, denies heart disease, denies high blood pressure,denies cardiac stent, denies prior heart attack, denies irregular heart beat, denies high cholesterol, denies poor circulation, denies heart failure, other cardiac issues, denies claudication, denies cold feet, denies peripheral arterial stent. Respiratory: The patient denies tuberculosis, denies pneumonia, denies frequent cough, denies pulmonary embolism, denies shortness of breath, and denies coughing up blood. Gastrointestinal: The patient denies difficulty swallowing, denies acid reflux, denies ulcers, denies vomiting, denies jaundice/hepatitis, denies gallbladder problems, denies black or tarry stools, denies hemorrhoids, denies bleeding from rectum, denies diverticulitis, denies constipation, denies diarrhea, denies loss of stool control, and denies hernias. Kidney/Bladder: The patient denies kidney stones, denies urine infections, and denies bloody urine. Skin: The patient denies a history of skin cancer, denies bleeding/changing moles, and denies a history of skin rash. Neurologic: The patient denies a history of epilepsy/convulsions, NOTES headaches, denies head/spinal injuries, and denies stroke/TIA. Psychiatric: The patient denies psychiatric medications, denies depression, and denies voices, denies substance abuse. Endocrine: The patient NOTES thyroid disorders, denies diabetes, and denies hormonal problems. Hematologic: The patient NOTES a history of bruising, denies bleeding, and NOTES anemia, denies blood clots. Infections: The patient denies a history of measles and mumps, denies rheumatic fever, and denies sexually transmitted diseases. Musculoskeletal: The patient denies back pain/injury, denies back problems, denies sciatica, denies knee/foot trouble, denies arthritis, or denies gout. When was patient's last Mammogram screening? N/A Last Colonoscopy: None Shaneka Rebollar MD 10/25/2017 4:07 PM Signed Hazel Fraga 1985 REFERRING PHYSICIAN: Juan Fairchild MD CHIEF COMPLAINT: New Patient; for colonoscopy; and iron defiency anemia HPI: The patient is a 32 year old female presents with anemia. Persistent despite appropriate treatment. Has rare heartburn. Denies melena. Denies blood in stools. No family history of colon cancer. PAST MEDICAL HISTORY Diagnosis Date - Esophageal reflux - Migraines - Pernicious anemia - Unspecified hypothyroidism - Vitamin B 12 deficiency PAST SURGICAL HISTORY Procedure Laterality Date - DELIVERY ONLY 2003 AND 2007 , low cervical x 2 PAST INJURIES Denies head injuries, has had finger fractures Current Outpatient Prescriptions: nortriptyline (PAMELOR) 50 mg capsule levothyroxine (SYNTHROID) 200 mcg tablet Take 200 mcg by mouth once daily. cyanocobalamin 1,000 mcg/mL soln Inject 1 mL intramuscularly once every month. Syringe with Needle, Disp, 3 mL 25 x 1 1/2 syrg For use with monthly home B12 injections. acetaminophen (TYLENOL EXTRA STRENGTH) 500 mg tablet Take 500 mg by mouth as needed. ALLERGIES: Biaxin [Clarithromycin]; Seasonal Allergies PERSONAL HISTORY: Social History Marital status: Spouse name: Sandor Years of education: Number of children: 1 Occupational History Occupation Employer [employer]* Social History Main Topics Smoking status: Never Smoker Smokeless status: Never Used Alcohol use: Yes Comment: Occasionally Drug use: No Sexual activity: Yes Partners with: Male FAMILY HISTORY Problem Relation Age of Onset - Thyroid Mother - Heart Father - Heart Other MATERNAL GREAT AUNT - Breast Cancer Other MATERNAL GREAT AUNT - Heart Maternal Grandfather - Cancer Maternal Grandfather - Cancer Maternal Aunt Thyroid cancer REVIEW OF SYSTEMS: General: The patient denies fatigue, denies weight loss, denies weight gain, denies feeling hot, and denies feelings of cold. Eyes: The patient denies glaucoma, denies eye injury/surgery, wears glasses or contacts. Ear/Nose/Throat: The patient NOTES allergies, denies hayfever, denies ear infections, and denies bloody noses. Cardiovascular: The patient denies chest pain, denies heart disease, denies high blood pressure,denies cardiac stent, denies prior heart attack, denies irregular heart beat, denies high cholesterol, denies poor circulation, denies heart failure, other cardiac issues, denies claudication, denies cold feet, denies peripheral arterial stent. Respiratory: The patient denies tuberculosis, denies pneumonia, denies frequent cough, denies pulmonary embolism, denies shortness of breath, and denies coughing up blood. Gastrointestinal: The patient denies difficulty swallowing, denies acid reflux, denies ulcers, denies vomiting, denies jaundice/hepatitis, denies gallbladder problems, denies black or tarry stools, denies hemorrhoids, denies bleeding from rectum, denies diverticulitis, denies constipation, denies diarrhea, denies loss of stool control, and denies hernias. Kidney/Bladder: The patient denies kidney stones, denies urine infections, and denies bloody urine. Skin: The patient denies a history of skin cancer, denies bleeding/changing moles, and denies a history of skin rash. Neurologic: The patient denies a history of epilepsy/convulsions, NOTES headaches, denies head/spinal injuries, and denies stroke/TIA. Psychiatric: The patient denies psychiatric medications, denies depression, and denies voices, denies substance abuse. Endocrine: The patient NOTES thyroid disorders, denies diabetes, and denies hormonal problems. Hematologic: The patient NOTES a history of bruising, denies bleeding, and NOTES anemia, denies blood clots. Infections: The patient denies a history of measles and mumps, denies rheumatic fever, and denies sexually transmitted diseases. Musculoskeletal: The patient denies back pain/injury, denies back problems, denies sciatica, denies knee/foot trouble, denies arthritis, or denies gout. PHYSICAL EXAMINATION: General: The patient is 32 year old female, well nourished, well hydrated in no acute distress. The patient is oriented to time, place, and person. VITALS: Blood pressure 120/86, pulse 88, height 167.6 cm (5' 6), weight 86.6 kg (191 lb) Body mass index is 30.83 kg/(m2). Head ? Normocephalic. EOM intact with sclera clear and no icterus noted. Mouth with mucus membranes moist. Neck - supple with no jugular venous distention noted. Trachea is midline.. No masses noted. Lungs ? clear to auscultationd. Normal breath sounds . No rales/rhonchi/wheezing noted. No labored breathing noted, such as retractions. Heart ? normal S1 and S2 auscultated. No rubs/clicks/murmurs noted. Regular rate. Abdomen ? soft and benign. Normal bowel sounds. No abdominal bruits noted. Extremities ? no calf tenderness noted. . Skin ? normal skin integrity. Neurological ? non focal Psych ? calm and appropriate Assessment IMPRESSION: anemia PLAN: I have discussed the above with the patient. I have offered evaluation with colonoscopy and EGD. I have explained the procedure to the patient. I have counseled the patient as to the risks of the procedure, including but not limited to: infection, bleeding, injury to any blood vessels/nerves, scar tissue, injury to any intraabdominal organs such as liver/spleen, perforation of the GI tract, inability to complete the procedure, complications of anesthesia, etc. ? the patient understands. The patient wishes to proceed. Colon cleansing preparation explained to patient. I have answered all questions to the patient?s satisfaction and the patient has no further questions. Greater than 50% of this patient encounter was dedicated to face to face discussion with the patient. . Diagnoses: (D50.8) Other iron deficiency anemia (primary encounter diagnosis) Renata Rebollar MD PROGRESS Observed: 10/08/2017 Status: COMPLETED Source: [place] 4:28 PM [facility] REPOSITORY HNO ID: [id number] Author: Juan Jones Service: (none) Author Type: Physician Type: Progress Notes Filed: 10/08/2017 4:51 PM Note Text: Diagnosis: 1) B12 and iron deficiency anemia. HPI: The patient is a 32 yo female who had been seeing a senior developer in [place] for about 6 years. According his note, the patient has a diagnosis of ROSE that did not respond to oral iron supplementation. She received Feraheme. She described getting doses intermittently over the last several year. Was with third child when last seen here 04/2015. No further pregnancies planned. Had tubal ligation. Breast fed with all three children. Presents for ongoing hematologic management. Interim history: Still getting home B12 injections ( administers) monthly. She was scheduled for colonoscopy twice but both times the procedure was canceled. Thereafter she did not reschedule. She's not having any symptoms of GI bleeding including melena and/or hematochezia. She still has generalized fatigue. No other complaints. Very heavy menses when not --had ablation 01/2017. Minimal menses since. PMH, medications and allergies personally reviewed by me today. Any changes documented in appropriate section. ROS: Constitutional: Denies episodes of fever and night sweats. Neuro: Chronic migraines--less with Pamelor. Denies vertigo and symptoms of peripheral neuropathy. HEENT: No recent change in voice, vision or hearing. Resp: Denies cough, wheeze and hemoptysis. No shortness of breath at rest. CVS: Denies exertional chest pain, PND, orthopnea and LE edema. GI: Denies reflux, n/v, change in bowel habits and abdominal pain. : No dysuria or gross hematuria. No symptoms of bladder outlet obstruction. Endo: No hot flashes. Musculoskeletal: Denies bone, back, joint and muscular pain. Derm: No rash. Heme: No unusual bleeding or bruising. Psych: Normal mood. PHYSICAL EXAM: Vitals: Blood pressure 132/85, pulse 98, temperature 36.8 ?C (98.3 ?F), weight 88.2 kg (194 lb 8 oz), unknown if currently . Well-appearing and in no acute distress. EYES: Sclerae are anicteric bilaterally. ENT: Oral mucosa is unremarkable. NECK: Supple. No enlargement of thyroid. LYMPHATIC: No appreciable cervical adenopathy. All previous shotty adenopathy resolved. No axillary or inguinal adenopathy. RESPIRATORY: Inspiratory breath sounds are of normal intensity in all guerra. No rales, wheezes or rhonchi. Expiratory phase is normal. CARDIOVASCULAR: Rhythm is regular. Normal intensity S1/S2. There is no gallop or murmur. ABDOMEN: The abdomen is gravid. There is no organomegaly. No tenderness. Extremities: Free of edema. SKIN: No jaundice or rash. No petechiae. NEUROLOGIC: fusion juncture grinder II-XII are grossly intact. No focal motor weakness. DTRs are normal. MUSCULOSKELETAL: No joint swelling or tenderness. ASSESSMENT/PLAN: (280.9) ROSE (iron deficiency anemia) (primary encounter diagnosis) Assessment: -This is been a chronic recurring problem for her. Iron deficiency previously attributed to heavy menses as well as multiple pregnancies with breast-feeding afterwards. Heavy menses resolved after ablation. -Reviewed her CBC with her. Hemoglobin remains normal. Iron studies pending. I readdressed the issue that I really feel strongly she should have at a minimum a colonoscopy to which she agrees. Plan: -Referral to general surgery for colonoscopy. -CBC/Iron studies every 6 months. -OV in about 12 months. (266.2) B12 deficiency Assessment: -Tolerating home injections well. Plan: -Continue. Juan Jones DO CNOVSP Observed: 10/08/2017 Status: COMPLETED Source: [place] 4:20 PM [facility] REPOSITORY Visit (SP) Office (IDAN[place]) HAZEL FRAGA ([id number]) 1985 F Date Time Provider Department 10/08/17 4:20 PM JUAN JONES During your visit today, we recorded the following information about you: Temperature Pulse Blood pressure Weight 98.3 degrees 98/minute 132/85 88.2 kg Naya Carvalho AYUSH 10/08/2017 4:28 PM Signed Est patient. Six month ov. Discuss recent labs. Naya Carvalho AYUSH Jones DO 10/08/2017 4:51 PM Signed Diagnosis: 1) B12 and iron deficiency anemia. HPI: The patient is a 32 yo female who had been seeing a senior developer in [place] for about 6 years. According his note, the patient has a diagnosis of ROSE that did not respond to oral iron supplementation. She received Feraheme. She described getting doses intermittently over the last several year. Was with third child when last seen here 04/2015. No further pregnancies planned. Had tubal ligation. Breast fed with all three children. Presents for ongoing hematologic management. Interim history: Still getting home B12 injections ( administers) monthly. She was scheduled for colonoscopy twice but both times the procedure was canceled. Thereafter she did not reschedule. She's not having any symptoms of GI bleeding including melena and/or hematochezia. She still has generalized fatigue. No other complaints. Very heavy menses when not --had ablation 01/2017. Minimal menses since. PMH, medications and allergies personally reviewed by me today. Any changes documented in appropriate section. ROS: Constitutional: Denies episodes of fever and night sweats. Neuro: Chronic migraines--less with Pamelor. Denies vertigo and symptoms of peripheral neuropathy. HEENT: No recent change in voice, vision or hearing. Resp: Denies cough, wheeze and hemoptysis. No shortness of breath at rest. CVS: Denies exertional chest pain, PND, orthopnea and LE edema. GI: Denies reflux, n/v, change in bowel habits and abdominal pain. : No dysuria or gross hematuria. No symptoms of bladder outlet obstruction. Endo: No hot flashes. Musculoskeletal: Denies bone, back, joint and muscular pain. Derm: No rash. Heme: No unusual bleeding or bruising. Psych: Normal mood. PHYSICAL EXAM: Vitals: Blood pressure 132/85, pulse 98, temperature 36.8 ?C (98.3 ?F), weight 88.2 kg (194 lb 8 oz), unknown if currently . Well-appearing and in no acute distress. EYES: Sclerae are anicteric bilaterally. ENT: Oral mucosa is unremarkable. NECK: Supple. No enlargement of thyroid. LYMPHATIC: No appreciable cervical adenopathy. All previous shotty adenopathy resolved. No axillary or inguinal adenopathy. RESPIRATORY: Inspiratory breath sounds are of normal intensity in all guerra. No rales, wheezes or rhonchi. Expiratory phase is normal. CARDIOVASCULAR: Rhythm is regular. Normal intensity S1/S2. There is no gallop or murmur. ABDOMEN: The abdomen is gravid. There is no organomegaly. No tenderness. Extremities: Free of edema. SKIN: No jaundice or rash. No petechiae. NEUROLOGIC: fusion juncture grinder II-XII are grossly intact. No focal motor weakness. DTRs are normal. MUSCULOSKELETAL: No joint swelling or tenderness. ASSESSMENT/PLAN: (280.9) ROSE (iron deficiency anemia) (primary encounter diagnosis) Assessment: -This is been a chronic recurring problem for her. Iron deficiency previously attributed to heavy menses as well as multiple pregnancies with breast-feeding afterwards. Heavy menses resolved after ablation. -Reviewed her CBC with her. Hemoglobin remains normal. Iron studies pending. I readdressed the issue that I really feel strongly she should have at a minimum a colonoscopy to which she agrees. Plan: -Referral to general surgery for colonoscopy. -CBC/Iron studies every 6 months. -OV in about 12 months. (266.2) B12 deficiency Assessment: -Tolerating home injections well. Plan: -Continue. Juan Jones DO Referring Provider: JUAN JONES [[id number]] Allergies As of Date: 10/08/2017 Noted Allergy Reaction BIAXIN (CLARITHROMYCIN) 04/01/2007 11 - Vomiting SEASONAL ALLERGIES 05/24/2015 14 - Other: See Comments Comments: nasal congestion and drainage Date Reviewed: 10/08/2017 Reviewed by: Juan Jones - Fully Assessed Reason for Visit: Established Patient [175] Primary Visit Diagnosis:Iron deficiency anemia, unspecified iron deficiency anemia type [D50.9] Follow-up and Disposition History Recorded Prescriptions as of 10/08/2017 Sig: LEVOTHYROXINE 200 MCG TABLET Take 200 mcg by mouth once da* CYANOCOBALAMIN (VIT B-12) 1,0* Inject 1 mL intramuscularly o* SYRINGE WITH NEEDLE 3 ML 25 X* For use with monthly home B12* ACETAMINOPHEN 500 MG TABLET Take 500 mg by mouth as neede* NORTRIPTYLINE 50 MG CAPSULE Medication notes this encounter NORTRIPTYLINE 50 MG CAPSULE >> Juan Jones DO 10/08/2017 4:38 PM >> JUAN JONES DO [facility] Oct 08, 2017 4:38 PM Received from: External Pharmacy Problem List As Of Date 10/08/2017 Noted Resolved Other malaise and fatigue [R53.81, R53.83] INVALID FOR*10/08/2017 HYPOTHYROIDISM NOS [E03.9] INVALID FOR* B12 deficiency [E53.8] INVALID FOR* ROSE (iron deficiency anemia) [D50.9] INVALID FOR* Pernicious anemia [D51.0] INVALID FOR* Iron malabsorption [K90.9] INVALID FOR* Visit Notes: >> Naya Carvalho LPN [facility] Oct 08, 2017 4:24 PM Status: Signed Est patient. Six month ov. Discuss recent labs. Naya Carvalho LPN Encounter Status:Closed by JUAN JONES DO on 10/08/17 JOE ABS GR + CBC Collected: 10/08/2017 Status: F Source: [place] 4:15 PM [facility] [place] REPOSITORY TYPE CODE TESTS RESULT OUT OF REFERENCE UNITS RANGE LAB WWBC 3.70-11.00 k/uL Joe WBC 8.52 LAB WRBC 3.90-5.20 m/uL Challenge RBC 3.98 LAB WHGB 11.5-15.5 g/dL Joe Hemoglobin 11.6 LAB WHCT 36.0-46.0 % Joe Hematocrit 36.5 LAB WMCV 80.0-100.0 fL Joe MCV 91.7 LAB WMCH 26.0-34.0 pg Challenge MCH 29.1 LAB WMCHC 30.5-36.0 g/dL Challenge MCHC 31.8 LAB WRDW 11.5-15.0 % Challenge RDW 12.3 LAB WPLT 150-400 k/uL Challenge Platelet Cnt 255 LAB WMPV 9.0-12.7 fL Challenge MPV 9.9 Result Comment: Test performed at: [facility], [address] [place] [address]. LAB ABGRAN 1.45-7.50 k/uL Absol Gran 5.68 Count IRON AND TIBC Collected: 10/08/2017 Status: F Source: [place] 4:15 PM [facility] REPOSITORY TYPE CODE TESTS RESULT OUT OF REFERENCE UNITS RANGE LAB IRN 41-186 ug/dL Iron 53 LAB TIBC 232-386 ug/dL TIBC 273 LAB SAT 15-57 % Transferrin Saturatn 19 Performed By: #### IRON, FERR #### [facility] [address] [address] FERRITIN Collected: 10/08/2017 Status: F Source: [place] 4:15 PM [facility] REPOSITORY TYPE CODE TESTS RESULT OUT OF REFERENCE UNITS RANGE LAB FERR 14.7-205.1 ng/mL Ferritin 168.5 Performed By: #### IRON, FERR #### [facility] [address] [id number] THYROID STIM HORMONE Collected: 10/01/2017 Status: F Source: [place] (TSH) 4:46 PM [facility] REPOSITORY TYPE CODE TESTS RESULT OUT OF RANGE REFERENCE UNITS LAB [id number] 0.358-3.74 uIU/mL High TSH 5.96 Performed By: #### [id number] #### [facility] [address] [place], [address] ALLERGIES ALLERGIES DATE TYPE / NAME / CODE REACTION SEVERITY SOURCE CODE 11/10/2017 Drug No Known Unknown Challenge Allergy/41 Allergies/[id number] [facility] [id number]( (RXNORM) [facility]) Repository 05/24/2015 Environ/42 SEASONAL ALLERGIES OTHER: SEE C [facility] [id number]([facility] OME CT) Repository 04/01/2007 DRUG CLARITHROMYCIN Vomiting [facility] INGREDI/41 [facility] [id number]( Repository [facility]) ENCOUNTERS ENCOUNTERS ADMIT/DISCHARGE ACCOUNT ADMITTING ENCOUNTER LOCATION SOURCE NUMBER CLASS 07/22/2018 [id number] [facility] ing:LABSPEC Repository 05/14/2018 [id number] [facility] ing:OLS.WCEH Repository 04/09/2018/04/09/20 [id number] Ambulatory [address] [place] Repository 12/08/2017/12/11/19 [id number] Ambulatory [address] Repository 11/18/2017/11/19/19 [id number] RENATA REBOLLAR Ambulatory [address] Repository 11/10/2017/11/11/19 [id number] Ambulatory BMSBuilding:[place] Joe [facility] Repository 10/29/2017 [id number] Ambulatory [facility] ing:MFPLAB Repository 10/21/2017/10/27/19 [id number] Ambulatory [address] Repository 10/08/2017/10/13/19 [id number] Ambulatory [address] Repository 10/08/2017/10/09/19 [id number] Ambulatory [address] Repository 10/01/2017 [id number] [facility] ing:MFPLAB Repository PAYERS PAYERS ENCOUNTER GUARANTOR PAYER SUBSCRIBER SOURCE 07/22/2018 HAZEL Tran Primary SHANIQUA Diaz [id number] Insurance:Miky NESBITTB: [facility] [place]: [id number] [id number] Repository 31115Zhz: 330) Date:1951-30-20[phone] () [id number] [address]HE: 07/22/2018 Secondary NOT GIVENUNK Challenge Insurance:SELF PAY [facility] Number: Effective Repository Date:2018-07-22 05/14/2018 HAZEL Tran Primary NOT GIVENUNK Joe [id number] Insurance:SELF PAY [place] Number: Effective Repository [id number]: ([phone]) Date:2018-05-14 [phone] () 11/10/2017 HAZEL Tran Primary SHANIQUA Diaz [id number] Insurance:AEBhaskar NESBITTB: [facility] Number: [id number], [place] [id number] Repository [address]Cci: ([phone]) Date:2104-98-83[phone] (HP) [id number] JAIME BULLOCK [phone]: 11/10/2017 Secondary NOT GIVENUNK Jeo Insurance:SELF PAY [facility] Number: Effective Repository Date:2017-11-10 10/29/2017 Hazel Tran Primary SHANIQUA [id number] Insurance:AETNAPolicy JRDOB: [facility] Jeremiah Martinez Number: [id number] [id number] Repository [address]Fyz: ([phone]) Date:2585-64-00TG [phone] (HP) [id number] JAIME BULLOCK [id number]: 10/29/2017 Secondary NOT GIVENUNK Challenge Insurance:SELF PAY [facility] Number: Effective Repository Date:2017-10-29 10/01/2017 Hazel Tran Primary SHANIQUA Diaz [id number] Insurance:AETNAPolicy JRDOB: [facility] Jeremiah Martinez Number: [id number], [place] [id number] Repository [address]Pxj: ([phone]) Date:9061-42-23FM [phone] (HP) [id number] JAIME BULLOCK [id number]: 10/01/2017 Secondary NOT GIVENUNK Joe Insurance:SELF PAY [facility] Number: Effective Repository Date:2017-10-01
== END ==
PROVIDERS: Family Provider Family Medicine; PCP Family Medicine; Referring Provider Family Medicine; Visit Provider Family Medicine
DX: E03.9 Hypothyroidism, unspecified (principal); D51.0 Vitamin B12 deficiency anemia due to intrinsic factor deficiency
CPT/HCPCS: 36415; 84436; 84443; 84480; 85027

== ENCOUNTER → 2018-10-22 16:54 | Outpatient (CLI) | payer OTHER, SELFPAY ==
[2017-11-10 17:28] VITALS: BMI 32.5
[2018-10-22 18:57] LABS: Anion Gap 8 (5-15); BUN 11 mg/dL (7-18); BUN/Creat Ratio 18.3 RATIO (10-20); Calcium,Total 9.2 mg/dL (8.5-10.1); Chloride 103 mmol/L (98-107); EST Glomerular Filtration Rate 121 mL/min (>60); Est Glom Filt Rate - Afr Amer 146 mL/min (>60); Free T3 3.7 pg/mL (2.18-3.98); Glucose 86 mg/dL (74-106); Sodium Level 136 mmol/L (136-145); T4 Total, Thyroxin 11.6 ug/dL (4.8-13.9); Thyroid Stim Hormone (TSH) 0.07 uIU/mL (0.358-3.74)
== END ==
PROVIDERS: Family Provider Family Medicine; PCP Family Medicine; Referring Provider Family Medicine; Visit Provider Family Medicine
DX: E03.9 Hypothyroidism, unspecified (principal)
CPT/HCPCS: 36415; 80048; 82306; 84436; 84443; 84481

== ENCOUNTER → 2018-12-02 16:44 | Outpatient (CLI) | payer OTHER, SELFPAY ==
[2017-11-10 17:28] VITALS: BMI 32.5
[2018-12-02 18:02] LABS: Albumin, Serum 4.1 g/dL (3.2-5.0); BUN 10 mg/dL (7-18); BUN/Creat Ratio 16.3 RATIO (10-20); Creatinine, Serum 0.61 mg/dL (0.55-1.02); EST Glomerular Filtration Rate 118 mL/min (>60); Est Glom Filt Rate - Afr Amer 143 mL/min (>60); Globulin 3.9 g/dL (2.2-4.2); Glucose 93 mg/dL (74-106)
[2018-12-02 18:03] LABS: ALB/GLOB Ratio 1.1 RATIO (0.9-2.4); AST(SGOT) 23 U/L (15-37); Alanine Aminotransfer ALT/SGPT 21 U/L (13-56); Alkaline Phosphatase 105 U/L (45-117); Anion Gap 7 (5-15); Calcium,Total 9.1 mg/dL (8.5-10.1); Chloride 103 mmol/L (98-107); Free T3 2.9 pg/mL (2.18-3.98); Potassium 3.4 mmol/L (3.5-5.1); Sodium Level 138 mmol/L (136-145); T4 Free Direct 1.29 ng/dL (0.76-1.46); Thyroid Stim Hormone (TSH) 0.14 uIU/mL (0.358-3.74)
== END ==
PROVIDERS: Family Provider Family Medicine; PCP Family Medicine; Referring Provider Nurse Practitioner Adult Health; Visit Provider Nurse Practitioner Adult Health
DX: E03.8 Other specified hypothyroidism (principal); E55.9 Vitamin D deficiency, unspecified
CPT/HCPCS: 36415; 80053; 82306; 84439; 84443; 84481

== ENCOUNTER → 2019-05-09 16:22 | Outpatient (CLI) | payer OTHER, SELFPAY ==
[2017-11-10 17:28] VITALS: BMI 32.5
[2019-05-09 17:57] LABS: Thyroid Stim Hormone (TSH) 0.89 uIU/mL (0.358-3.74)
== END ==
PROVIDERS: Family Provider Family Medicine; PCP Family Medicine; Referring Provider Internal Medicine Endocrinology, Diabetes & Metabolism; Visit Provider Internal Medicine Endocrinology, Diabetes & Metabolism
DX: E03.8 Other specified hypothyroidism (principal)
CPT/HCPCS: 36415; 84443

== ENCOUNTER → 2019-11-24 15:04 | Outpatient (CLI) | payer OTHER, SELFPAY ==
[2017-11-10 17:28] VITALS: BMI 32.5
[2019-11-24 17:56] LABS: Vitamin D,25 Hydroxy 13.2 ng/mL
[2019-11-24 18:10] LABS: AST(SGOT) 26 U/L (15-37); Alanine Aminotransfer ALT/SGPT 22 U/L (13-56); Albumin, Serum 4.2 g/dL (3.2-5.0); Alkaline Phosphatase 113 U/L (45-117); Anion Gap 7 (5-15); BUN 7 mg/dL (7-18); BUN/Creat Ratio 10.3 RATIO (10-20); Calcium,Total 8.9 mg/dL (8.5-10.1); Chloride 99 mmol/L (98-107); Cholesterol 238 mg/dL (200); Creatinine, Serum 0.68 mg/dL (0.55-1.02); EST Glomerular Filtration Rate 105 mL/min (>60); Est Glom Filt Rate - Afr Amer 127 mL/min (>60); Glucose 88 mg/dL (74-106); High Density Lipoprotein 35 mg/dL; Potassium 3.6 mmol/L (3.5-5.1); Protein, Total 8.2 g/dL (6.4-8.2); Sodium Level 136 mmol/L (136-145); Triglycerides 536 mg/dL
== END ==
PROVIDERS: PCP Family Medicine; Referring Provider Internal Medicine Endocrinology, Diabetes & Metabolism; Visit Provider Internal Medicine Endocrinology, Diabetes & Metabolism
DX: E03.8 Other specified hypothyroidism (principal); E78.00 Pure hypercholesterolemia, unspecified; E55.9 Vitamin D deficiency, unspecified
CPT/HCPCS: 36415; 80053; 80061; 82306; 84443

== ENCOUNTER → 2020-02-01 14:43 | Outpatient (CLI) | payer OTHER, SELFPAY ==
[2020-02-01 18:32] LABS: Vitamin D,25 Hydroxy 23.3 ng/mL
[2020-02-01 18:40] LABS: Cholesterol 227 mg/dL (200); High Density Lipoprotein 38 mg/dL; Thyroid Stim Hormone (TSH) 0.36 uIU/mL (0.358-3.74); Triglycerides 190 mg/dL; Very Low Density Lipoprotein 38 mg/dL (5-40)
== END ==
PROVIDERS: PCP Family Medicine; Referring Provider Internal Medicine Endocrinology, Diabetes & Metabolism; Visit Provider Internal Medicine Endocrinology, Diabetes & Metabolism
DX: E78.2 Mixed hyperlipidemia (principal); E03.8 Other specified hypothyroidism; E55.9 Vitamin D deficiency, unspecified
CPT/HCPCS: 36415; 80061; 82306; 84443

== ENCOUNTER → 2020-08-13 08:22 | Outpatient (CLI) | payer OTHER, SELFPAY ==
[2017-11-10 17:28] VITALS: BMI 32.5
[2020-08-13 10:09] LABS: Vitamin D,25 Hydroxy 38.1 ng/mL
[2020-08-13 10:43] LABS: AST(SGOT) 20 U/L (15-37); Alanine Aminotransfer ALT/SGPT 19 U/L (13-56); Albumin, Serum 3.8 g/dL (3.2-5.0); Alkaline Phosphatase 105 U/L (45-117); Anion Gap 8 (5-15); BUN 9 mg/dL (7-18); BUN/Creat Ratio 13.1 RATIO (10-20); Calcium,Total 8.8 mg/dL (8.5-10.1); Chloride 100 mmol/L (98-107); Cholesterol 218 mg/dL (200); Creatinine, Serum 0.69 mg/dL (0.55-1.02); EST Glomerular Filtration Rate 103 mL/min (>60); Est Glom Filt Rate - Afr Amer 124 mL/min (>60); Globulin 3.9 g/dL (2.2-4.2); Glucose 85 mg/dL (74-106); High Density Lipoprotein 44 mg/dL; Potassium 3.6 mmol/L (3.5-5.1); Protein, Total 7.7 g/dL (6.4-8.2); Sodium Level 136 mmol/L (136-145); Thyroid Stim Hormone (TSH) 3.68 uIU/mL (0.358-3.74); Triglycerides 180 mg/dL; Very Low Density Lipoprotein 36 mg/dL (5-40)
[2020-08-14 16:09] LABS: Endomysial Antibody IgA Negative (Negative)
[2020-08-14 19:41] LABS: Deamidated Gliadin IgA 3 units (0-19); Deamidated Gliadin IgG 2 units (0-19); Immunoglobulin A 147 mg/dL (87-352); t-Transglutaminase IgA <2 U/mL (0-3)
== END ==
PROVIDERS: PCP Family Medicine; Referring Provider Nurse Practitioner Adult Health; Visit Provider Nurse Practitioner Adult Health
DX: E03.8 Other specified hypothyroidism (principal); E78.00 Pure hypercholesterolemia, unspecified; E55.9 Vitamin D deficiency, unspecified; K90.0 Celiac disease
CPT/HCPCS: 36415; 80053; 80061; 82306; 82784; 83516; 84443; 86255

== ENCOUNTER → 2020-12-12 14:37 | Outpatient (CLI) | payer OTHER, SELFPAY ==
[2020-12-12 18:07] LABS: AST(SGOT) 22 U/L (15-37); Alanine Aminotransfer ALT/SGPT 23 U/L (13-56); Albumin, Serum 3.9 g/dL (3.2-5.0); Alkaline Phosphatase 110 U/L (45-117); Anion Gap 4 (5-15); BUN 11 mg/dL (7-18); Calcium,Total 8.3 mg/dL (8.5-10.1); Chloride 103 mmol/L (98-107); Creatinine, Serum 0.73 mg/dL (0.55-1.02); EST Glomerular Filtration Rate 95 mL/min (>60); Est Glom Filt Rate - Afr Amer 115 mL/min (>60); Globulin 3.8 g/dL (2.2-4.2); Glucose 86 mg/dL (74-106); Potassium 3.3 mmol/L (3.5-5.1); Protein, Total 7.7 g/dL (6.4-8.2); Sodium Level 138 mmol/L (136-145); Thyroid Stim Hormone (TSH) 5.67 uIU/mL (0.358-3.74)
== END ==
PROVIDERS: PCP Family Medicine; Referring Provider Internal Medicine Endocrinology, Diabetes & Metabolism; Visit Provider Internal Medicine Endocrinology, Diabetes & Metabolism
DX: E03.8 Other specified hypothyroidism (principal)
CPT/HCPCS: 36415; 80053; 84443

== ENCOUNTER → 2021-01-04 | Outpatient (CLI) | payer OTHER, SELFPAY ==
[2021-01-08 18:55] LABS: HPV Reflexed? NOT INDICATED
== END | disposition home or self-care (01) ==
LOC: LABSPEC 13:58
PROVIDERS: PCP Family Medicine; Visit Provider Obstetrics & Gynecology
DX: Z12.4 Encounter for screening for malignant neoplasm of cervix (principal)
CPT/HCPCS: 88175; G0145

== ENCOUNTER → 2021-01-24 12:35 | Outpatient (CLI) | payer OTHER, SELFPAY ==
[2017-11-10 17:28] VITALS: BMI 32.5
[2021-01-24 18:17] LABS: Anion Gap 5 (5-15); BUN 10 mg/dL (7-18); BUN/Creat Ratio 12.9 RATIO (10-20); Chloride 102 mmol/L (98-107); Creatinine, Serum 0.78 mg/dL (0.55-1.02); EST Glomerular Filtration Rate 89 mL/min (>60); Est Glom Filt Rate - Afr Amer 108 mL/min (>60); Glucose 101 mg/dL (74-106); Potassium 3.6 mmol/L (3.5-5.1); Sodium Level 137 mmol/L (136-145)
== END ==
PROVIDERS: PCP Family Medicine; Referring Provider Internal Medicine Endocrinology, Diabetes & Metabolism; Visit Provider Internal Medicine Endocrinology, Diabetes & Metabolism
DX: E03.8 Other specified hypothyroidism (principal)
CPT/HCPCS: 36415; 80048; 84443

== ENCOUNTER → 2021-02-08 14:24 | Outpatient (CLI) | payer OTHER, SELFPAY ==
[2017-11-10 17:28] VITALS: BMI 32.5
[2021-02-11 08:05] LABS: Hepatitis B Surface Antibody Reactive
[2021-02-12 11:02] LABS: Mumps Antibody,IgG < 9.0 AU/mL (Immune >10.9); Rubeola IgG Ab 68.4 AU/mL (Immune >16.4)
== END ==
PROVIDERS: PCP Family Medicine; Referring Provider Family Medicine; Visit Provider Family Medicine
DX: Z78.9 Other specified health status (principal); Z11.59 Encounter for screening for other viral diseases
CPT/HCPCS: 36415; 86706; 86735; 86765

== ENCOUNTER → 2021-02-22 15:07 | Outpatient (CLI) | payer OTHER, SELFPAY ==
[2017-11-10 17:28] VITALS: BMI 32.5
[2021-02-22 17:50] LABS: Vitamin B12 245 pg/mL (211-911)
[2021-02-26 22:27] LABS: Anti-Parietal Cell AB, QN 13.1 Units (0.0-20.0)
== END ==
PROVIDERS: PCP Family Medicine; Referring Provider Internal Medicine Gastroenterology; Visit Provider Internal Medicine Gastroenterology
DX: E53.8 Deficiency of other specified B group vitamins (principal)
CPT/HCPCS: 36415; 82607; 82803; 83516; 86340

== ENCOUNTER → 2021-05-22 16:36 | Outpatient (CLI) | payer OTHER, SELFPAY ==
[2021-05-22 18:11] LABS: Hematocrit 36.3 % (37-47); Mean Corp Hgb Conc 33.1 g/dL (32-36); Mean Corpuscular Hgb 29.8 pg (27.0-32.0); Mean Corpuscular Volume 90.1 fL (81-99); Mean Platelet Vol. 10.2 fl (6.2-12.0); Platelet Count 315 K/mm3 (150-450); RBC Distribution Width CV 12.6 % (11.6-14.6); RBC Distribution Width SD 41.5 fl (35.1-43.9); Red Blood Count 4.03 M/mm3 (4.2-5.4); White Blood Count 8.4 K/mm3 (4.4-11.0)
[2021-05-22 18:32] LABS: CRP 9.61 mg/L (0.0-3.0)
[2021-05-22 18:39] LABS: Vitamin B12 309 pg/mL (211-911)
[2021-05-24 16:09] LABS: Endomysial Antibody IgA Negative (Negative)
[2021-05-24 16:27] LABS: Immunoglobulin A 137 mg/dL (87-352); t-Transglutaminase IgA <2 U/mL (0-3)
== END ==
PROVIDERS: PCP Family Medicine; Referring Provider Internal Medicine Gastroenterology; Visit Provider Internal Medicine Gastroenterology
DX: K90.0 Celiac disease (principal)
CPT/HCPCS: 36415; 82607; 82784; 83516; 85027; 86140; 86255

== ENCOUNTER 2021-10-11 09:01 | Outpatient (CLI) | payer OTHER, SELFPAY ==
[2021-10-11 10:27] LABS: Anion Gap 5 (5-15); BUN 8 mg/dL (7-18); BUN/Creat Ratio 13.9 RATIO (10-20); Calcium,Total 8.9 mg/dL (8.5-10.1); Chloride 104 mmol/L (98-107); Cholesterol 217 mg/dL (200); Creatinine, Serum 0.58 mg/dL (0.55-1.02); EST Glomerular Filtration Rate 125 mL/min (>60); Est Glom Filt Rate - Afr Amer 151 mL/min (>60); Free T3 2.6 pg/mL (2.18-3.98); Glucose 85 mg/dL (74-106); High Density Lipoprotein 37 mg/dL; Potassium 4.3 mmol/L (3.5-5.1); Sodium Level 138 mmol/L (136-145); T4 Free Direct 1.17 ng/dL (0.76-1.46); Thyroid Stim Hormone (TSH) 3.84 uIU/mL (0.358-3.74); Triglycerides 195 mg/dL; Very Low Density Lipoprotein 39 mg/dL (5-40)
== END 2021-10-11 23:59 | disposition home or self-care (01) ==
LOC: MFPLAB 09:04
PROVIDERS: PCP Family Medicine; Referring Provider Family Medicine; Visit Provider Family Medicine
DX: R03.0 Elevated blood-pressure reading, without diagnosis of hypertension (principal); E03.9 Hypothyroidism, unspecified
CPT/HCPCS: 36415; 80048; 80061; 84439; 84443; 84481

== ENCOUNTER 2022-07-15 08:35 | Emergency (ER) | payer OTHER, SELFPAY ==
[2022-07-15 08:35] VITALS: BP 155/104; PULSE 109; RESP 14; TEMP 36.4; O2SAT 97; BMI 33.3
--- NOTE | 2022-07-15 08:57 | EKG12_ITS ---
Test Reason : GENERAL Blood Pressure : / mmHG Vent. Rate : 086 BPM Atrial Rate : 086 BPM P-R Int : 138 ms QRS Dur : 086 ms QT Int : 374 ms P-R-T Axes : 057 025 -07 degrees QTc Int : 447 ms Normal sinus rhythm Nonspecific ST and T wave abnormality Abnormal ECG Confirmed by YAYO KIRK, OTTO ([id number]), fan mail editor LÁZARO GARRETT ([id number]) on 07/16/2022 9:16:37 AM Referred By: Confirmed By:OTTO ZEE MD
[2022-07-15] MEDS: Ondansetron 4 MG/2 ML Vial IV (09:15)
[2022-07-15] MEDS: 0.9% Normal Saline 1,000 ML 1000 ML IV (09:15)
[2022-07-15] MEDS: diazePAM 5 MG Tablet 2.5 MG PO (09:20)
[2022-07-15 09:26] LABS: Absolute Lymphocyte Count 0.64 X10^3/uL (0.83-4.51); Absolute Neutrophil Count 3.5 X10^3/uL (2.0-7.7); Basophil# 0.03 X10^3/uL; Basophil% 0.6 % (0-1); Eosinophil# 0.01 X10^3/uL; Eosinophils% 0.2 % (0-5); Hematocrit 38.7 % (37-47); Hemoglobin 12.9 g/dL (12.0-15.0); Lymphocyte # 0.64 X10^3/ul (0.83-4.51); Lymphocyte % 13.1 % (19-41); Mean Corp Hgb Conc 33.3 g/dL (32-36); Mean Corpuscular Hgb 29.9 pg (27.0-32.0); Mean Corpuscular Volume 89.6 fL (81-99); Mean Platelet Vol. 10.1 fl (6.2-12.0); Monocyte% 14.3 % (0-10); NRBC Flagged by Analyzer 0 % (0-5); Neutrophil # 3.51 X10^3/uL (2.7-7.7); Neutrophil % 71.6 % (47-70); Platelet Count 235 K/mm3 (150-450); RBC Distribution Width CV 12.3 % (11.6-14.6); RBC Distribution Width SD 40.5 fl (35.1-43.9); Red Blood Count 4.32 M/mm3 (4.2-5.4); White Blood Count 4.9 K/mm3 (4.4-11.0)
[2022-07-15 09:58] LABS: Anion Gap 6 (5-15); BUN 7 mg/dL (7-18); BUN/Creat Ratio 10.7 RATIO (10-20); Calcium,Total 9.2 mg/dL (8.5-10.1); Chloride 102 mmol/L (98-107); Creatinine, Serum 0.65 mg/dL (0.55-1.02); EST Glomerular Filtration Rate 108 mL/min (>60); Est Glom Filt Rate - Afr Amer 130 mL/min (>60); Glucose 103 mg/dL (74-106); Potassium 3.5 mmol/L (3.5-5.1); Sodium Level 137 mmol/L (136-145)
[2022-07-15 10:26] VITALS: BP 144/90; PULSE 76; RESP 16; TEMP 36.5; O2SAT 95
--- NOTE | 2022-07-15 10:47 | EX.ED.DYSGE1 ---
HPI History of Present Illness Chief Complaint: General Illness Detail of Chief Complaint: Fever, dizziness Informant: patient Onset/Context/Timing Onset: Days Context: Gradual Onset Current Severity: Mild Maximum Severity: Moderate Narrative Narrative: Patient presents with fever that started on Thursday. Temperatures been up to 102.5. It will come down with Tylenol and ibuprofen. She had body aches with minimal cough. She did not have a COVID test. Last evening she developed dizziness that is consistent with vertigo which she has had the past. She presented to the ER today because of the dizziness and unsteady gait. She states she did develop some nausea and vomiting with the vertigo. She has 2 children that were recently ill with URI symptoms and fever. [facility] Medical History history of ablation Hypothyroid Pernicious anemia Vertigo Home Medications levothyroxine 125 mcg tablet 200 mcg PO DAILY 12/05/14 [History Last Taken 02/16/17 08:00 200 MCG] multivitamin 1 ea PO DAILY 02/09/17 [History Last Taken Unknown] diazepam 5 mg tablet (Valium) 2.5 mg PO TID PRN vertigo #10 tabs 07/15/22 [Rx Last Taken Unknown] fluoxetine 20 mg capsule 20 mg PO DAILY 07/15/22 [History Last Taken Unknown] lisinopril 10 mg tablet 10 mg PO DAILY 07/15/22 [History Last Taken Unknown] ondansetron 4 mg disintegrating tablet 4 mg PO Q8H PRN nausea and vomiting #10 tabs 07/15/22 [Rx Last Taken Unknown] Allergy/AdvReac Type Severity Reaction Status Date / Time No Known Allergies Allergy Verified 07/15/22 08:38 Surgical History History of History of D&C Social History Smoking Status: Never smoker alcohol intake: never ROS ROS ED Constitutional Constitutional ED: Reports chills and fever(s) Eyes Eyes: Denies change in vision or discharge from eye(s) ENT ENT ED: Denies discharge from eye(s), rhinorrhea or sore throat Cardiovascular Cardiovascular: Denies chest pain or palpitations Respiratory/Chest Respiratory/Chest: Reports cough; Denies dyspnea Gastrointestinal Gastrointestinal: Reports nausea and vomiting; Denies abdominal pain or diarrhea Genitourinary Genitourinary ED: Denies dysuria Musculoskeletal Musculoskeletal: Reports myalgias; Denies back pain or extremity pain Integumentary Denies Abrasions or rash Neurologic Neurologic: Reports weakness; Denies headache(s) Psychiatric Psychiatric: Denies anxiety or depression Allergic/Immunologic Allergic/Immunologic ED: Denies lip swelling or urticaria EXAM Physical Exam Const Vital Signs: 07/15/22 08:35 07/15/22 08:48 07/15/22 10:26 Temperature 97.5 F L 97.7 F L Temperature Source Temporal Temporal Pulse Rate 109 H 76 Respiratory Rate 14 16 Respiratory Effort Normal Non-Labored Respiratory Pattern Normal Blood Pressure 155/104 H 144/90 H Blood Pressure Mean 121 108 Pulse Ox 97 95 Oxygen Delivery Method Room Air Room Air Positive well nourished and well developed General Appearance ED: well developed HEENT Reports normocephalic and head/scalp atraumatic Eyes PERRL and EOMs intact bilaterally Neck supple Chest Wall inspection of chest normal and palpation of chest normal Resp normal respiratory effort and clear to auscultation bilaterally Cardio regular rate and regular rhythm GI non-tender Auscultation: hypoactive bowel sounds Palpation: soft Extremity normal to inspection Neuro oriented x3 and no sensory deficits noted Sensorium / Orientation: alert Motor Exam: strength 5/5 throughout Psych mental status grossly normal Skin no rashes or lesions noted MDM MDM MDM Narrative Medical decision making narrative: Patient given IV fluids along with Zofran and Valium. Lab work obtained along with swabs for COVID and influenza. Lab Data Attestation: I reviewed the patient's lab results. Labs: Laboratory Results - last 24 hr 07/15/22 07/15/22 09:10 09:10 WBC 4.9 RBC 4.32 Hgb 12.9 Hct 38.7 MCV 89.6 MCH 29.9 MCHC 33.3 RDW Std Deviation 40.5 RDW Coeff of Camelia 12.3 Plt Count 235 MPV 10.1 Immature Gran % (Auto) 0.200 Neut % (Auto) 71.6 H Lymph % (Auto) 13.1 L [place] % (Auto) 14.3 H Eos % (Auto) 0.2 Baso % (Auto) 0.6 Absolute Neuts (auto) 3.5 Absolute Lymphs (auto) 0.64 L Nucleated RBC % 0 Sodium 137 Potassium 3.5 Chloride 102 Carbon Dioxide 29.0 Anion Gap 6 BUN 7 Creatinine 0.65 Estim Creat Clear Calc 105.60 Est GFR (MDRD) Af Amer 130 Est GFR (MDRD) Non-Af 108 BUN/Creatinine Ratio 10.7 Glucose 103 Calcium 9.2 EKG Initial EKG: Attestation: I personally reviewed and interpreted this EKG as follows: Interpretation: Sinus Rhythm (Sinus 86. Nonspecific diffuse ST depression of approximately 1 mm.) Treatment and Re-Evaluation Narrative: CBC and chemistry studies unremarkable. COVID test is negative. Influenza swab is positive for flu A. On repeat evaluation patient does feel improved. She was able to get up at bedside. Although she does still have some dizziness, it is significant improved when compared to arrival. She will continue supportive care for her influenza. I will write her for Zofran and Valium at home. Return instructions given. Discharge Plan Triage Chief Complaint: General Illness ED Provider: Joanna Dominguez Dx/Rx/DC Orders Clinical Impression: Vertigo, Influenza A Instructions: ED Influenza (Adult), ED Vertigo, Unspecified Prescriptions: New ondansetron 4 mg tablet,disintegrating 4 mg PO Q8H PRN (Reason: nausea and vomiting) Qty: 10 0RF diazepam [Valium] 5 mg tablet 2.5 mg PO TID PRN (Reason: vertigo) Qty: 10 0RF No Action levothyroxine 125 MCG tablet 200 mcg PO DAILY multivitamin 1 EACH tablet 1 ea PO DAILY lisinopril 10 mg tablet 10 mg PO DAILY Label Comments: TAKE 1 TABLET BY MOUTH EVERY DAY fluoxetine 20 mg capsule 20 mg PO DAILY Label Comments: TAKE 1 CAPSULE BY MOUTH EVERY DAY Primary Care Provider: Juan Reyes Referrals: Juan Reyes MD [Primary Care Provider] - 1-2 Weeks Disposition Disposition: Home, Self Care Discharge Date/Time: 07/15/22 11:10
== END 2022-07-15 11:10 | disposition home or self-care (01) ==
PROVIDERS: Emergency Provider Emergency Medicine; PCP Family Medicine; Visit Provider Emergency Medicine
DX: J10.1 Influenza due to other identified influenza virus with other respiratory manifestations (principal); R42 Dizziness and giddiness; R26.81 Unsteadiness on feet
CPT/HCPCS: 80048; 85025; 87428; 93005; 96361; 96374; 99283; J7030; A4216; J2405

== ENCOUNTER → 2023-03-12 | Outpatient (CLI) | payer OTHER, SELFPAY ==
[2023-03-12 16:12] LABS: Vitamin D,25 Hydroxy 21.2 ng/mL
[2023-03-12 16:46] LABS: ALB/GLOB Ratio 1.1 RATIO (0.9-2.4); AST(SGOT) 27 U/L (15-37); Alanine Aminotransfer ALT/SGPT 43 U/L (13-56); Alkaline Phosphatase 109 U/L (45-117); Anion Gap 7 (5-15); BUN 10 mg/dL (7-18); BUN/Creat Ratio 13.3 RATIO (10-20); Calcium,Total 8.9 mg/dL (8.5-10.1); Chloride 100 mmol/L (98-107); Creatinine, Serum 0.75 mg/dL (0.55-1.02); EST Glomerular Filtration Rate 91 mL/min (>60); Est Glom Filt Rate - Afr Amer 110 mL/min (>60); Globulin 3.7 g/dL (2.2-4.2); Glucose 90 mg/dL (74-106); Potassium 3.6 mmol/L (3.5-5.1); Protein, Total 7.7 g/dL (6.4-8.2); Sodium Level 136 mmol/L (136-145); Thyroid Stim Hormone (TSH) 1.87 uIU/mL (0.358-3.74)
== END | disposition home or self-care (01) ==
LOC: MTLAB 13:54
PROVIDERS: PCP Family Medicine; Visit Provider Internal Medicine Endocrinology, Diabetes & Metabolism
DX: E03.8 Other specified hypothyroidism (principal)
CPT/HCPCS: 36415; 80053; 82306; 84443

== ENCOUNTER → 2023-05-29 | Outpatient (CLI) | payer OTHER, SELFPAY ==
[2023-05-29 17:33] LABS: Absolute Lymphocyte Count 1.66 X10^3/uL (0.83-4.51); Absolute Neutrophil Count 5.9 X10^3/uL (2.0-7.7); Basophil# 0.05 X10^3/uL; Basophil% 0.6 % (0-1); Eosinophil# 0.26 X10^3/uL; Eosinophils% 3.1 % (0-5); Hemoglobin 12.1 g/dL (12.0-15.0); Lymphocyte # 1.66 X10^3/ul (0.83-4.51); Lymphocyte % 19.8 % (19-41); Mean Corp Hgb Conc 32.7 g/dL (32-36); Mean Corpuscular Hgb 30.1 pg (27.0-32.0); Mean Platelet Vol. 11.1 fl (6.2-12.0); Monocyte# 0.47 X10^3/uL; Monocyte% 5.6 % (0-10); NRBC Flagged by Analyzer 0 % (0-5); Neutrophil # 5.93 X10^3/uL (2.7-7.7); Neutrophil % 70.5 % (47-70); Platelet Count 343 K/mm3 (150-450); RBC Distribution Width SD 40.6 fl (35.1-43.9); Red Blood Count 4.02 M/mm3 (4.2-5.4); White Blood Count 8.4 K/mm3 (4.4-11.0)
[2023-05-29 18:37] LABS: Anion Gap 7 (5-15); BUN 8 mg/dL (7-18); BUN/Creat Ratio 13.8 RATIO (10-20); Calcium,Total 8.8 mg/dL (8.5-10.1); Chloride 106 mmol/L (98-107); Cholesterol 207 mg/dL (200); Creatinine, Serum 0.58 mg/dL (0.55-1.02); EST Glomerular Filtration Rate 123 mL/min (>60); Est Glom Filt Rate - Afr Amer 149 mL/min (>60); Glucose 120 mg/dL (74-106); High Density Lipoprotein 33 mg/dL; Potassium 3.7 mmol/L (3.5-5.1); Sodium Level 140 mmol/L (136-145); Triglycerides 348 mg/dL; Very Low Density Lipoprotein 70 mg/dL (5-40)
== END | disposition home or self-care (01) ==
LOC: MFPLAB 14:33
PROVIDERS: PCP Family Medicine; Visit Provider Family Medicine
DX: R39.89 Other symptoms and signs involving the genitourinary system (principal); I10 Essential (primary) hypertension; D64.9 Anemia, unspecified
CPT/HCPCS: 36415; 80048; 80061; 85025; 87086

== ENCOUNTER 2023-07-13 19:44 | Emergency (ER) | payer OTHER, SELFPAY ==
[2023-07-13 19:44] VITALS: BP 164/90; PULSE 96; RESP 18; TEMP 36.4; O2SAT 100; BMI 33.4
[2023-07-13] MEDS: 0.9% Normal Saline (1000mL) 1,000 ML 999 ML IV (20:59)
[2023-07-13] MEDS: Metoclopramide 10 MG/2 ML Vial IV (21:00)
[2023-07-13] MEDS: DiphenhydrAMINE 50 MG/ML Syringe 25 MG IV (21:00)
[2023-07-13 21:01] LABS: Absolute Lymphocyte Count 1.96 X10^3/uL (0.83-4.51); Absolute Neutrophil Count 7.7 X10^3/uL (2.0-7.7); Basophil# 0.05 X10^3/uL; Basophil% 0.5 % (0-1); Eosinophil# 0.23 X10^3/uL; Eosinophils% 2.2 % (0-5); Hematocrit 40.5 % (37-47); Hemoglobin 13.1 g/dL (12.0-15.0); Lymphocyte # 1.96 X10^3/ul (0.83-4.51); Lymphocyte % 18.5 % (19-41); Mean Corp Hgb Conc 32.3 g/dL (32-36); Mean Corpuscular Hgb 29.4 pg (27.0-32.0); Mean Platelet Vol. 9.5 fl (6.2-12.0); Monocyte# 0.64 X10^3/uL; NRBC Flagged by Analyzer 0 % (0-5); Neutrophil # 7.67 X10^3/uL (2.7-7.7); Neutrophil % 72.5 % (47-70); Platelet Count 307 K/mm3 (150-450); RBC Distribution Width CV 12.1 % (11.6-14.6); RBC Distribution Width SD 40.3 fl (35.1-43.9); Red Blood Count 4.45 M/mm3 (4.2-5.4); White Blood Count 10.6 K/mm3 (4.4-11.0)
--- NOTE | 2023-07-13 21:09 | CT_ITS ---
STUDY: CT BRAIN WITHOUT CONTRAST REASON FOR EXAM: Female, 38 years old. Pain RADIATION DOSAGE (If Supplied By Facility): CTDIvol = ( 44.99 ) mGy, DLP = ( 829.85 ) mGycm TECHNIQUE: Transaxial CT imaging of the brain was performed without administration of intravenous contrast material. Individualized dose optimization techniques were used for this CT. COMPARISON: No relevant priors. FINDINGS: Normal soft tissue structures. Normal calvarium. Normal size ventricles and extra-axial spaces for the patient''s age. Normal white matter tracts of the cerebral hemispheres. Normal basal ganglia and thalami. Normal brainstem. Normal cerebellum. There is no intracranial hemorrhage. There are no findings of an acute ischemic infarction. Partial empty sella deformity of uncertain significance Normal visualized paranasal sinuses. CT/Brain/Head without Contrast IMPRESSION: Partial empty sella deformity of uncertain significance.. Otherwise normal unenhanced CT of the brain Electronically Signed: Zheng Herrera MD at 21:22 EST ,
[2023-07-13 21:16] LABS: Erythrocyte Sedimentation Rate 16 mm/hr (0-30)
[2023-07-13 21:17] LABS: Anion Gap 4 (5-15); BUN 9 mg/dL (7-18); BUN/Creat Ratio 13.1 RATIO (10-20); Calcium,Total 9.3 mg/dL (8.5-10.1); Chloride 103 mmol/L (98-107); Creatinine, Serum 0.69 mg/dL (0.55-1.02); EST Glomerular Filtration Rate 101 mL/min (>60); Est Glom Filt Rate - Afr Amer 122 mL/min (>60); Estimated Creatinine Clearance 102.47 ml/min; Glucose 94 mg/dL (74-106); Potassium 3.7 mmol/L (3.5-5.1); Sodium Level 136 mmol/L (136-145)
--- NOTE | 2023-07-13 21:25 | EX.ED.VIS.HA ---
HPI History of Present Illness Chief Complaint: Headache Informant: patient Onset/Context/Timing Onset: Weeks (1) Context: Gradual Timing: Continuous Quality -Headache: Positive for Dull and Throbbing Location: Occipital and left-sided Worsened by: Laying on her left side Relieved by: Nothing Associated Symptoms/Injury Associated Symptoms: Positive for Nausea, Vomiting and Sinus Pressure; Negative for Fever, Sore Throat, Numbness, Tingling, Preceding Aura, Visual Changes, Blurred Vision, Photophobia or Visual Loss Injury - FARR: Negative for Direct Trauma Narrative Narrative: Patient presents with a headache that has been constant for the past week. Patient states it came on gradually but got worse over the past couple days. Patient states her pain is mainly in the occipital area at the base of her skull and on the left side of her head. Patient describes it as dull and throbbing. Patient states it has been constant for the past week. Patient states it is worse when she lays on her left side. Patient admits to some nausea and vomiting. Patient also admits to some sinus pressure. Patient states she saw her primary care physician who prescribed her Imitrex as well as an antibiotic for possible sinusitis. Patient states she has been taking Imitrex with no relief. [facility] Medical History history of ablation Hypothyroid Pernicious anemia Vertigo Home Medications levothyroxine 125 mcg tablet 200 mcg PO DAILY 12/05/14 [History Last Taken 02/16/17 08:00 200 MCG] multivitamin 1 ea PO DAILY 02/09/17 [History Last Taken Unknown] diazepam 5 mg tablet (Valium) 2.5 mg (1/2 x 5 mg) PO TID PRN vertigo #10 tabs 07/15/22 [Rx Last Taken Unknown] fluoxetine 20 mg capsule 20 mg PO DAILY 07/15/22 [History Last Taken Unknown] lisinopril 10 mg tablet 10 mg PO DAILY 07/15/22 [History Last Taken Unknown] ondansetron 4 mg disintegrating tablet 4 mg PO Q8H PRN nausea and vomiting #10 tabs 07/15/22 [Rx Last Taken Unknown] Allergy/AdvReac Type Severity Reaction Status Date / Time No Known Allergies Allergy Verified 07/13/23 19:46 Surgical History History of History of D&C Social History Smoking Status: Never smoker alcohol intake: never ROS ROS ED Constitutional Constitutional ED: Denies chills or fever(s) Eyes Eyes: Denies blurry vision or change in vision ENT ENT ED: Denies rhinorrhea or sore throat Cardiovascular Cardiovascular: Denies chest pain or palpitations Respiratory/Chest Respiratory/Chest: Denies cough or dyspnea Gastrointestinal Gastrointestinal: Reports nausea and vomiting Genitourinary Genitourinary ED: Denies dysuria or hematuria Musculoskeletal Musculoskeletal: Reports neck pain; Denies back pain Integumentary Denies abscess or rash Neurologic Neurologic: Reports headache(s); Denies weakness Allergic/Immunologic Allergic/Immunologic ED: Denies mouth swelling or urticaria EXAM Physical Exam Const Vital Signs: 07/13/23 19:44 Temperature 97.6 F L Temperature Source Temporal Pulse Rate 96 Respiratory Rate 18 Blood Pressure 164/90 H Blood Pressure Mean 114 Pulse Ox 100 Oxygen Delivery Method Room Air Positive well nourished, well developed and obese General Appearance ED: well developed and NAD Nutritional Appearance: obese HEENT Reports moist mucous membranes atraumatic; Negative for temporal artery tenderness Face and Sinus: Negative for sinus tenderness Neck supple, no meningeal signs and no JVD Resp normal respiratory effort and clear to auscultation bilaterally Cardio regular rate and regular rhythm GI non-tender and non-distended Palpation: soft Neuro oriented x3, CN's II-XII intact bilaterally and no sensory deficits noted Carline Coma Scale: document GCS findings Spontaneous Obeys Commands Oriented 15 Sensorium / Orientation: awake and alert Speech: speech normal Motor Exam: strength 5/5 throughout Psych mental status grossly normal MDM MDM MDM Narrative Medical decision making narrative: Proximal diagnosis includes migraine headache, intracranial bleeding, temporal arteritis, and cluster headache. CT scan of the brain will be obtained to assess for intracranial bleeding. CBC will be obtained to assess for leukocytosis and anemia. Basic metabolic profile will be obtained to assess for electrolyte abnormality and renal function. Sed rate will be obtained to assess for temporal arteritis. Lab Data Attestation: I reviewed the patient's lab results. Lab results narrative: CBC was reviewed and was within normal limits. Basic metabolic profile was reviewed and was within normal limits. Anion gap was normal. Sed rate was reviewed and was normal at 16. Labs: Laboratory Results - last 24 hr 07/13/23 20:53 WBC 10.6 RBC 4.45 Hgb 13.1 Hct 40.5 MCV 91.0 MCH 29.4 MCHC 32.3 RDW Std Deviation 40.3 RDW Coeff of Camelia 12.1 Plt Count 307 MPV 9.5 Immature Gran % (Auto) 0.300 Neut % (Auto) 72.5 H Lymph % (Auto) 18.5 L [place] % (Auto) 6.0 Eos % (Auto) 2.2 Baso % (Auto) 0.5 Absolute Neuts (auto) 7.7 Absolute Lymphs (auto) 1.96 Nucleated RBC % 0 ESR 16 Sodium 136 Potassium 3.7 Chloride 103 Carbon Dioxide 29.0 Anion Gap 4 L BUN 9 Creatinine 0.69 Estim Creat Clear Calc 102.47 Est GFR (MDRD) Af Amer 122 Est GFR (MDRD) Non-Af 101 BUN/Creatinine Ratio 13.1 Glucose 94 Calcium 9.3 Radiography Diagnostic Testing: Clinical Impression(s) from Imaging Studies Brain CT 07/13/23 21:09 IMPRESSION: Partial empty sella deformity of uncertain significance.. Otherwise normal unenhanced CT of the brain Electronically Signed: Zheng Herrera MD at 21:22 EST , CT scan of the brain was obtained. There is no acute intracranial abnormality. There is a partial empty sella deformity of uncertain significance. This was interpreted by the radiologist and was also independently reviewed by myself. Treatment and Re-Evaluation Narrative: Patient was given IV fluids, Reglan, and Benadryl. Patient's headache has improved. Patient was advised of her findings. Patient was given a dose of Toradol here. Patient was instructed to rest in a dark quiet room. Patient was instructed to follow-up with her primary care physician in 5 to 7 days. Patient was instructed return if worse in any way. Patient understood and was agreeable with the plan. All questions were answered. Discharge Plan Triage Chief Complaint: Headache ED Provider: Vinod Garcia Dx/Rx/DC Orders Clinical Impression: Headache, Hypertension Instructions: ED Headache Unspecified Prescriptions: No Action levothyroxine 125 MCG tablet 200 mcg PO DAILY multivitamin 1 EACH tablet 1 ea PO DAILY lisinopril 10 mg tablet 10 mg PO DAILY Patient Comments: TAKE 1 TABLET BY MOUTH EVERY DAY fluoxetine 20 mg capsule 20 mg PO DAILY Patient Comments: TAKE 1 CAPSULE BY MOUTH EVERY DAY ondansetron 4 mg tablet,disintegrating 4 mg PO Q8H PRN (Reason: nausea and vomiting) Qty: 10 0RF diazepam [Valium] 5 mg tablet 2.5 mg PO TID PRN (Reason: vertigo) Qty: 10 0RF Primary Care Provider: Juan Reyes Referrals: Juan Reyes MD [Primary Care Provider] - 5-7 Days Disposition Disposition: Home, Self Care
[2023-07-13 21:44] VITALS: RESP 16
[2023-07-13] MEDS: Ketorolac 30 MG/ML Syringe IV (22:48)
== END 2023-07-13 22:53 | disposition home or self-care (01) ==
PROVIDERS: Emergency Provider Emergency Medicine; PCP Family Medicine; Visit Provider Emergency Medicine
DX: R51.9 Headache, unspecified (principal); R11.2 Nausea with vomiting, unspecified; I10 Essential (primary) hypertension; E03.9 Hypothyroidism, unspecified; R42 Dizziness and giddiness; Z79.899 Other long term (current) drug therapy
CPT/HCPCS: 70450; 80048; 85025; 85652; 96361; 96374; 96375; 99283; J7030; A4216

== ENCOUNTER → 2023-07-13 | Outpatient (CLI) | payer OTHER, SELFPAY ==
[2023-07-13 11:06] LABS: Vitamin D,25 Hydroxy 41.7 ng/mL
[2023-07-13 11:21] LABS: AST(SGOT) 28 U/L (15-37); Alanine Aminotransfer ALT/SGPT 34 U/L (13-56); Albumin, Serum 3.9 g/dL (3.2-5.0); Alkaline Phosphatase 97 U/L (45-117); Anion Gap 7 (5-15); BUN 11 mg/dL (7-18); BUN/Creat Ratio 14.7 RATIO (10-20); Chloride 100 mmol/L (98-107); Cholesterol 229 mg/dL (200); Creatinine, Serum 0.75 mg/dL (0.55-1.02); EST Glomerular Filtration Rate 92 mL/min (>60); Est Glom Filt Rate - Afr Amer 111 mL/min (>60); Globulin 4.1 g/dL (2.2-4.2); Glucose 94 mg/dL (74-106); High Density Lipoprotein 40 mg/dL; Potassium 3.7 mmol/L (3.5-5.1); Sodium Level 135 mmol/L (136-145); Thyroid Stim Hormone (TSH) 2.37 uIU/mL (0.358-3.74); Triglycerides 181 mg/dL; Very Low Density Lipoprotein 36 mg/dL (5-40)
== END | disposition home or self-care (01) ==
LOC: MTLAB 09:18
PROVIDERS: PCP Family Medicine; Referring Provider Internal Medicine Endocrinology, Diabetes & Metabolism; Visit Provider Internal Medicine Endocrinology, Diabetes & Metabolism
DX: E03.8 Other specified hypothyroidism (principal); E55.9 Vitamin D deficiency, unspecified; E78.00 Pure hypercholesterolemia, unspecified
CPT/HCPCS: 36415; 80053; 80061; 82306; 84443

== ENCOUNTER → 2023-10-02 | Outpatient (CLI) | payer OTHER, SELFPAY ==
--- OUTSIDE RECORDS SUMMARY | 2023-10-02 13:23 | XMS RPT_ITS | CCD ---
Author Name Unknown Address [address] [place] [address] Organization [facility] Care Team Providers Care Obstetrician And Gynaecologist Name Role Phone Eric KIRK, Juan Lloyd Primary Care Provider Allergies Allergy Classification Reported Allergen(s) Allergy Type Date of Onset Reaction(s) Facility (1 source) Clarithromycin Drug Allergy 7 Vomiting [facility] Work Phone: (1 source) Seasonal allergy Allergy to substance 5 Other: See Comments [facility] Medications Completed/Discontinued Medications Medication Drug Class(es) Dates Sig (Normalized) Sig (Original) acetaminophen 500 mg oral tablet (1 source) acetaminophen (T YLENOL EXTRA STRENGTH) 500 mg tablet Take 500 mg by mouth as needed. 0 Active Problems Active Problems Problem Classification Problem Date Documented Da te Episodic/Chronic Other gastrointestinal disorders (1 source) Malabsorption - iron; Translations: [Intestinal malabsorption, unspecified] Onset: 05-04-2015 05-04-2015 Chronic Thyroid disorders (1 source) Hypothyroidism; Translations: [Hypothyroidism, unspecified] Onset: 09-20-2007 09-20-2007 Chronic Past or Other Problems Problem Classification Problem Date Documented Da te Episodic/Chronic Deficiency and other anemia (1 source) Iron deficiency anemia; Translations: [Iron deficiency anemia, unspecified] Onset: 05-04-2015 05-04-2015 Episodic Deficiency and other anemia (1 source) Pernicious anemia; Translations: [Vitamin B12 deficiency anemia due to intrinsic factor deficiency] Onset: 05-04-2015 05-04-2015 Episodic Nutritional deficiencies (1 source) Cobalamin deficiency; Translations: [Deficiency of other specified B group vitamins] Onset: 05-04-2015 05-04-2015 Episodic Results Test Name Value Interpretation Reference Range Facil ity Encounters Encounter Date Encounter Type Care Provider Facility Start: 05-29-2022 Telephone encounter Juan lama DO Work Phone: Hematology/Oncology Plan of Treatment Date Care Activity Detail Author Start: 04-24-2022 Influenza vaccination INFLUENZA (#1) [facility] Start: 08-24-2021 DEPRESSION ASSESSMENT DEPRESSION ASS ESSMENT [facility] Start: 01-11-2021 COVID-19 VACCINE (3 - Booster for Moderna series) COVID-19 VACCINE (3 - Booster for Moderna series) [facility] Start: 02-04-2014 HPV TESTING HPV TESTING [facility] Start: 06-04-2011 PAP TESTING PAP TESTING [facility] Start: 02-04-2003 Urine microalbumin profile DTAP,TDAP ,TD (1 - Tdap) [facility] Start: 02-04-2002 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 Social History Date Type Detail Facility Start: 01-09-2015 Tobacco smoking stat us NHIS Never smoked tobacco [facility] Start: 01-09-2015 Tobacco use and exposure Smoke less tobacco non-user [facility] Start: 06-11-2020 Alcohol intake Current drinke r of alcohol (finding) [facility] Start: 1985 Sex Assigned At Not on file [facility] Note 05-29-2022 Telephone Encounter - Naya Carvalho LPN - 05/29/2022 9:18 AM EDTTelephone Encounter - Cleo Walker Pss - 05/29/2022 8:44 AM EDT Note Date & Type Note Facility 05-29-2022 Miscellaneous Notes Formattin g of this note might be different from the original. Lab appointment notes updated with additional labs. Naya Carvalho LPN Patient called in requesting a prescription for b12 injections. Canceled last OV a year ago through my chart and never rescheduled. Patient instructed she would have to be seen prior to getting prescription. Scheduled for CBC/IRON STUDIES per last year notes 06/06 with follow up 06/09. Please advise if any other lab work will be needed. documented in this encounter [facility] History of Past illness Narrative 05-08-2006 Note Date & Type Note Facility documented as of this encounter (statuses as of 05/29/2022) [facility] Summary Purpose Family History No Family History Records Found Advance Directives No Advanced Directives Records Found Additional Source Comments Source Comments (unrecognize d section and content) In the event this informatio n is protected by the Federal Confidentiality of Alcohol and Drug Abuse Patient Records regulations: The Federal rules restrict any use of the information to criminally investigate or prosecute any alcohol or drug abuse patient.[facility] Reason for Visit (unrecogniz ed section and content) Care Teams (unrecognized sec tion and content) INFORMATION SOURCE (unrecogn ized section and content) FOR RECORDS PERTAINING TO PATIENTS WHO ARE OR HAVE BEEN ENROLLED IN A CHEMICAL DEPENDENCY/SUBSTANCEABUSE PROGRAM, SOME INFORMATION MAY BE OMITTED. This clinical summary was aggregated from multiple sources. Caution should be exercised in using it in the provision of clinical care. This summary normalizes information from multiple sources, and as a consequence, information in this document may materially change the coding, format and clinical context of patient data. In addition, data may be omitted in some cases. CLINICAL DECISIONS SHOULD BE BASED ON THE PRIMARY CLINICAL RECORDS. [facility] [employer] [facility]. provides no warranty or guarantee of the accuracy or completeness of information in this document.
[2023-10-02 16:10] LABS: Anion Gap 8 (5-15); BUN 10 mg/dL (7-18); BUN/Creat Ratio 17.2 RATIO (10-20); Calcium,Total 9.4 mg/dL (8.5-10.1); Chloride 101 mmol/L (98-107); Cholesterol 126 mg/dL (200); Creatinine, Serum 0.58 mg/dL (0.55-1.02); EST Glomerular Filtration Rate 122 mL/min (>60); Est Glom Filt Rate - Afr Amer 148 mL/min (>60); Free T3 3.9 pg/mL (2.18-3.98); Glucose 92 mg/dL (74-106); High Density Lipoprotein 40 mg/dL; Potassium 3.5 mmol/L (3.5-5.1); Sodium Level 136 mmol/L (136-145); T4 Free Direct 1.81 ng/dL (0.76-1.46); Thyroid Stim Hormone (TSH) 0.05 uIU/mL (0.358-3.74); Triglycerides 111 mg/dL; Very Low Density Lipoprotein 22 mg/dL (5-40)
[2023-10-02 16:40] LABS: Rubella IgG Reactive (Nonreactive)
[2023-10-04 14:07] LABS: Mumps Antibody,IgG 11.6 AU/mL (Immune >10.9); Rubeola IgG Ab 90.8 AU/mL (Immune >16.4); V-Zoster IgG (Immunity) 930 index (Immune >165)
== END | disposition home or self-care (01) ==
LOC: MTLAB 13:03
PROVIDERS: PCP Family Medicine; Referring Provider Family Medicine; Visit Provider Family Medicine
DX: Z00.00 Encounter for general adult medical examination without abnormal findings (principal); E03.9 Hypothyroidism, unspecified
CPT/HCPCS: 36415; 80048; 80061; 84439; 84443; 84481; 86735; 86762; 86765; 86787

== ENCOUNTER → 2024-01-28 | Outpatient (CLI) | payer OTHER, SELFPAY ==
[2024-01-28 12:59] LABS: Vitamin D,25 Hydroxy 34.8 ng/mL
[2024-01-28 13:54] LABS: ALB/GLOB Ratio 1.1 RATIO (0.9-2.4); AST(SGOT) 20 U/L (15-37); Alanine Aminotransfer ALT/SGPT 20 U/L (13-56); Albumin, Serum 4.1 g/dL (3.2-5.0); Alkaline Phosphatase 97 U/L (45-117); Anion Gap 10 (5-15); BUN 10 mg/dL (7-18); BUN/Creat Ratio 16.1 RATIO (10-20); Calcium,Total 9.6 mg/dL (8.5-10.1); Chloride 103 mmol/L (98-107); Cholesterol 142 mg/dL (200); Creatinine, Serum 0.62 mg/dL (0.55-1.02); EST Glomerular Filtration Rate 113 mL/min (>60); Est Glom Filt Rate - Afr Amer 137 mL/min (>60); Globulin 3.9 g/dL (2.2-4.2); Glucose 89 mg/dL (74-106); High Density Lipoprotein 41 mg/dL; Potassium 4.3 mmol/L (3.5-5.1); Sodium Level 136 mmol/L (136-145); Thyroid Stim Hormone (TSH) 0.19 uIU/mL (0.358-3.74); Triglycerides 127 mg/dL; Very Low Density Lipoprotein 25 mg/dL (5-40)
== END | disposition home or self-care (01) ==
LOC: MTLAB 10:45
PROVIDERS: PCP Family Medicine; Referring Provider Internal Medicine Endocrinology, Diabetes & Metabolism; Visit Provider Internal Medicine Endocrinology, Diabetes & Metabolism
DX: E03.8 Other specified hypothyroidism (principal); E55.9 Vitamin D deficiency, unspecified; E78.00 Pure hypercholesterolemia, unspecified
CPT/HCPCS: 36415; 80053; 80061; 82306; 84443

== ENCOUNTER → 2024-04-07 | Outpatient (CLI) | payer OTHER, SELFPAY ==
[2024-04-07 15:53] LABS: T4 Free Direct 1.15 ng/dL (0.76-1.46)
== END | disposition home or self-care (01) ==
PROVIDERS: PCP Family Medicine; Referring Provider Internal Medicine Endocrinology, Diabetes & Metabolism; Visit Provider Internal Medicine Endocrinology, Diabetes & Metabolism
DX: E03.8 Other specified hypothyroidism (principal)
CPT/HCPCS: 36415; 84439; 84443

== ENCOUNTER → 2024-09-29 | Outpatient (CLI) | payer OTHER, SELFPAY ==
[2024-09-29 15:55] LABS: AST(SGOT) 18 U/L (15-37); Alanine Aminotransfer ALT/SGPT 18 U/L (13-56); Albumin, Serum 3.9 g/dL (3.2-5.0); Alkaline Phosphatase 80 U/L (45-117); Anion Gap 7 (5-15); BUN 9 mg/dL (7-18); BUN/Creat Ratio 16.3 RATIO (10-20); Calcium,Total 9.2 mg/dL (8.5-10.1); Chloride 105 mmol/L (98-107); Cholesterol 146 mg/dL (200); Creatinine, Serum 0.55 mg/dL (0.55-1.02); EST Glomerular Filtration Rate 129 mL/min (>60); Est Glom Filt Rate - Afr Amer 156 mL/min (>60); Globulin 3.9 g/dL (2.2-4.2); Glucose 78 mg/dL (74-106); High Density Lipoprotein 42 mg/dL; Potassium 3.8 mmol/L (3.5-5.1); Protein, Total 7.8 g/dL (6.4-8.2); Sodium Level 138 mmol/L (136-145); Triglycerides 150 mg/dL; Very Low Density Lipoprotein 30 mg/dL (5-40)
== END | disposition home or self-care (01) ==
LOC: MTLAB 11:11
PROVIDERS: PCP Family Medicine; Referring Provider Internal Medicine Endocrinology, Diabetes & Metabolism; Visit Provider Internal Medicine Endocrinology, Diabetes & Metabolism
DX: E03.8 Other specified hypothyroidism (principal); E55.9 Vitamin D deficiency, unspecified; E78.2 Mixed hyperlipidemia
CPT/HCPCS: 36415; 80053; 80061; 82306; 84443

== ENCOUNTER → 2024-12-09 | Outpatient (CLI) | payer OTHER, SELFPAY ==
--- NOTE | 2024-12-09 12:49 | BI_ITS ---
EXAM: SCRN MAMM (CAD)W/DICK BILAT 12/09/2024 CLINICAL HISTORY: F, Age 39 y/o , SCREENING TECHNIQUE: Bilateral screening digital breast tomosynthesis with 2D and 3D images. Computer aided detection. COMPARISON: Baseline examination, no priors. FINDINGS: TISSUE DENSITY: The breast tissue is composed of scattered area of fibroglandular density. Bilateral Breast Mammographic Findings: There is an asymmetry in the medial right breast at middle depth visualized on the CC view. No significant masses, calcifications or other abnormalities are identified in the left breast. BI/SCRN MAMM (CAD)W/DICK BILAT IMPRESSION: The asymmetry in the medial right breast at middle depth visualized on the CC v iew requires further evaluation. Recommend diagnostic mammogram of the right breast and ultrasound on the day of diagnosti c if indicated. Right Breast: BIRADS 0 Incomplete: Need additional imaging evaluation and/or pr ior mammograms for comparison.. Left Breast: BIRADS 1 NEGATIVE. OVERALL FINAL ASSESSMENT: BIRADS 0 Incomplete: Need additional imaging evaluati on and/or prior mammograms for comparison.. RECOMMENDATION: Recommendation: Additional projections. A letter with findings and recommendations will be mailed to the patient. Reading Location: [id number]
== END | disposition home or self-care (01) ==
LOC: OPBI 12:47
PROVIDERS: PCP Family Medicine; Referring Provider Family Medicine; Visit Provider Family Medicine
DX: Z00.00 Encounter for general adult medical examination without abnormal findings (principal); Z12.31 Encounter for screening mammogram for malignant neoplasm of breast
CPT/HCPCS: 77063; 77067

== ENCOUNTER → 2024-12-28 | Outpatient (CLI) | payer OTHER, SELFPAY ==
--- NOTE | 2024-12-28 09:20 | BI_ITS ---
EXAM: DIAG MAMM W/CAD, UNILAT; RT BRST UNILAT DICK ADD-ON; BREAST LIMITED UNILATERAL 12/28/2024 CLINICAL HISTORY: 39-year-old female presents for finding in the right breast seen on examination of 12/09/2024. No family history of breast cancer. TECHNIQUE: Right diagnostic digital breast tomosynthesis with 2D and 3D images. Computer aided detection. Also, targeted right breast ultrasound was performed. COMPARISON: Prior exam(s) dated 12/09/2024. FINDINGS: MAMMOGRAM: TISSUE DENSITY: The breast tissue is composed of scattered area of fibroglandular density. Right breast: Follow-up examination performed for the right breast findings seen on examination of 12/09/2024. On the present examination, the asymmetry in the medial right breast at middle depth visualized on the CC view persist. ULTRASOUND: Ultrasound performed of the medial right breast demonstrates no suspicious sonographic findings. BI/DIAG MAMM W/CAD, UNILAT IMPRESSION: The asymmetry in the medial right breast at middle depth is probably benign. R ecommend short interval six-month follow-up diagnostic mammogram of the right breast for further evaluation. Right Breast: BIRADS 3 PROBABLY BENIGN. OVERALL FINAL ASSESSMENT: BIRADS 3 PROBABLY BENIGN. RECOMMENDATION: Short interval follow-up. A letter with findings and recommendations will be mailed to the patient. Reading Location: [id number]
--- NOTE | 2024-12-28 09:20 | BI_ITS ---
EXAM: DIAG MAMM W/CAD, UNILAT; RT BRST UNILAT DICK ADD-ON; BREAST LIMITED UNILATERAL 12/28/2024 CLINICAL HISTORY: 39-year-old female presents for finding in the right breast seen on examination of 12/09/2024. No family history of breast cancer. TECHNIQUE: Right diagnostic digital breast tomosynthesis with 2D and 3D images. Computer aided detection. Also, targeted right breast ultrasound was performed. COMPARISON: Prior exam(s) dated 12/09/2024. FINDINGS: MAMMOGRAM: TISSUE DENSITY: The breast tissue is composed of scattered area of fibroglandular density. Right breast: Follow-up examination performed for the right breast findings seen on examination of 12/09/2024. On the present examination, the asymmetry in the medial right breast at middle depth visualized on the CC view persist. ULTRASOUND: Ultrasound performed of the medial right breast demonstrates no suspicious sonographic findings. BI/Rt Brst Unilat Dick Add-On IMPRESSION: The asymmetry in the medial right breast at middle depth is probably benign. R ecommend short interval six-month follow-up diagnostic mammogram of the right breast for further evaluation. Right Breast: BIRADS 3 PROBABLY BENIGN. OVERALL FINAL ASSESSMENT: BIRADS 3 PROBABLY BENIGN. RECOMMENDATION: Short interval follow-up. A letter with findings and recommendations will be mailed to the patient. Reading Location: [id number]
== END | disposition home or self-care (01) ==
LOC: OPBI 09:18
PROVIDERS: PCP Family Medicine; Referring Provider Family Medicine; Visit Provider Family Medicine
DX: R92.8 Other abnormal and inconclusive findings on diagnostic imaging of breast (principal)
CPT/HCPCS: 76642; 77061; 77065; G0279

== ENCOUNTER → 2025-03-30 | Outpatient (CLI) | payer OTHER, SELFPAY ==
[2025-03-30 16:15] LABS: AST(SGOT) 21 U/L (<=31); Alanine Aminotransfer ALT/SGPT 18 U/L (<=34); Albumin, Serum 4.4 g/dL (3.5-5.0); Alkaline Phosphatase 98 U/L (35-104); Anion Gap 11 (5-15); BUN 9 mg/dL (4-19); BUN/Creat Ratio 12.9 RATIO (10-20); Calcium,Total 9.2 mg/dL (7.6-11.0); Carbon Dioxide 26.1 mmol/L (21.0-32.0); Chloride 101 mmol/L (98-108); Globulin 2.6 g/dL (2.2-4.2); Glucose 80 mg/dL (70-99); Potassium 3.6 mmol/L (3.3-5.1); Vitamin D,25 Hydroxy 40.2 ng/mL (30-100)
== END | disposition home or self-care (01) ==
LOC: MTLAB 11:36
PROVIDERS: PCP Family Medicine; Referring Provider Physician Assistant Medical; Visit Provider Physician Assistant Medical
DX: E03.8 Other specified hypothyroidism (principal); E55.9 Vitamin D deficiency, unspecified
CPT/HCPCS: 36415; 80053; 82306; 84443

== ENCOUNTER → 2025-04-07 | Outpatient (CLI) | payer OTHER, SELFPAY ==
--- NOTE | 2025-04-07 13:14 | RAD_ITS ---
PROCEDURE: WRIST MIN 3 VIEWS 04/07/2025 REASON FOR EXAM: PAIN Dorsal wrist pain. TECHNIQUE: WRIST MIN 3 VIEWS Laterality: Right wrist. COMPARISON: None FINDINGS: Bones: Findings suggestive of an undisplaced avulsion fracture of the triquetrum. Joints: Normal alignment. Soft tissues: Dorsal soft tissue swelling. Other: RAD/Wrist min 3 Views IMPRESSION: Findings suggestive of a nondisplaced avulsion fracture of the triquetrum with overlying soft tissue swelling. Reading Location: [id number]
== END | disposition home or self-care (01) ==
PROVIDERS: PCP Family Medicine; Referring Provider Family Medicine; Visit Provider Family Medicine
DX: M25.531 Pain in right wrist (principal)
CPT/HCPCS: 73110

== ENCOUNTER 2025-07-13 16:30 | Outpatient (RCR) | payer OTHER, SELFPAY ==
--- NOTE | 2025-06-23 07:58 | HP.OTEVAL ---
Patient's Visit Information Visit Information Visit Information: HAZEL ALDRICH is a 40 year old F, referred to Occupational Therapy by Dr. Bonilla Higuera DO, with a diagnosis of right wrist fx. Date of Evaluation: 06/21/25 Occupational Therapist: Barb Chavez, CINTHYA/Timur, CHT Subjective Subjective: This 40 year old female for OT eval with dx of right navicular fx about 3 months ago. 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 states she thought she could improve her ROM and return to using her wrist on her own. States she just received a cortisone shot about two weeks ago and feels it has helped a little. pt states she still has limited ROM, weakness and pain limiting functional use of her right UE. Pain right wris t: Current Pain Intensity: 2 Pain Intensity Range: 3 ROM Forearm: right WFL Wrist: right 45/30 left 65/65 ROM Comments: right RD 15 left 25* right UD 20* left 40 pt demo with a decrease in right wrist ROM Strength Electroplater Helper: right 55# left 80# Lateral Pinch: right 8# left 12# Tripod Pinch: right 14# left 14# Strength Comments: pt demo with a decrease in right radio electronics officer and pinch strength Sensation Sensation Comments: denies Quick DASH-Disab of Arm,Shoulder& Hand Quick DASH Score: 41.6650 Goals Goal:: pt will demo a increase in right radio electronics officer strength by 15# or greater to return to her PLOF by d.c pt will demo a increase in right lateral pinch by 4# increase IND with ADLs by d/c Goal:: pt will demo a increase in right wrist ROM by 15* or greater to return to her PLOF by d.c Goal:: pt will report no pain greater than 2/10 with use of right UE by d.c Rehabilitation General Assessment: pt arrives with limited right wrist ROM, pain and weakness limiting functional use of right UE with ADLs and IADLs. Pt would benefit from skilled OT services 1-2x week for 6 weeks to return pt to her PLOF. Today therapist ed. pt on dx, ROM ex. pt demo understanding and agree to POC. Rehabilitation Potential: Good Anticipated Interventions Anticipated Interventions: A/AAROM/PROM, Strengthening, Triggerpoint Release, Modalities, Orthoses, Joint Protection/Energy Conservation, Ergonomic Education, Fine Motor Coord/Dustin, Education re assistive Equipment, Education re Diagnosis and Home Program Visit Plan Frequency: 1-2x /Week Duration: 6 Weeks TEXT: Thank you for the opportunity to evaluate your patient. For Medicare and Medicare HMO plans, please review the plan of care and approve it. It will need to be FAXED BACK to us at [phone] for Medicare purposes. Please let me know if there are questions or concerns regarding this plan of care. Physician Signature: Date:
--- NOTE | 2025-07-13 17:07 | HP.OTDCSUM_ITS ---
Discharge Summary D/C Summary: It has been my pleasure to treat HAZEL ALDRICH under orders from Dr. Bonilla Higuera, DO, for the diagnosis of right wrist fx for a total of 4 visit(s). Please see the following information for a summary of their discharge status. Overall Improvement % Improvement: 50 Objective Objective/Function: pt demo with less pain with her ROM R wrist 60/[address] 25 degrees manager reliability 60# lateral pinch 18# tripod pinch 18# pain 0/10 Goals Patient Goals: Regain Mobility, Regain Strength, Decrease Pain, Improve Fine Motor Skills, Use Hand/Wrist/Arm Normally Again, Be More Independent in ADLS and Resume Former Household Responsibilities (Cooking,Cleaning,Yard, etc.) Goal:: pt will demo a increase in right manager reliability strength by 15# or greater to return to her PLOF by d.c 60# pt will demo a increase in right lateral pinch by 4# increase IND with ADLs by d/c lateral 18# tripod 18# Goal:: pt will demo a increase in right wrist ROM by 15* or greater to return to her PLOF by d.c 60/50 Goal:: pt will report no pain greater than 2/10 with use of right UE by d.c pain is 0/10 Plan Plan: wrist stabilization D/C Information Discharge Comments: This 40 year old female arrives with dx of R scaphoid fracture pt progressed well in POC with reduction in pain and improved ROM and strength. discharge at this time with plan for pt to continue exercise and stabilization at home. d/c sentence: If there are questions or concerns regarding this patient's occupational therapy, please fell free to call me at [phone]. Thank you for the referral of this patient. Sincerely, Ann Negron
== END 2025-07-13 19:00 | disposition home or self-care (01) ==
LOC: OT 16:30
PROVIDERS: PCP Family Medicine; Referring Provider Student in an Organized Health Care Education/Training Program; Visit Provider Student in an Organized Health Care Education/Training Program
DX: S62.024D Nondisplaced fracture of middle third of navicular [scaphoid] bone of right wrist, subsequent encounter for fracture with routine healing (principal)
CPT/HCPCS: 97110; 97166; 97530

== ENCOUNTER → 2025-07-13 | Outpatient (CLI) | payer OTHER, SELFPAY ==
--- NOTE | 2025-07-13 08:57 | BI_ITS ---
EXAM: DIAG MAMM W/CAD, UNILAT 07/13/2025 CLINICAL HISTORY: F, Age 40 y/o , 12/28/2024 SHORT INTERVAL MAMMOGRAM RECOMMENDED TECHNIQUE: Procedure Code: [id number] Modality: MG Procedure: DIAG MAMM W/CAD, UNILAT. 90 degree lateral and compression spot views of the right breast were obtained. COMPARISON: Prior exam(s) dated December 28, 2024.. FINDINGS: TISSUE DENSITY: There are scattered areas of fibroglandular density. Bilateral Breast Mammographic Findings: No significant masses, calcifications or other abnormalities are identified. No suspicious masses, areas of developing architectural distortion, or suspicious calcifications. There has been no significant interval change. BI/DIAG MAMM W/CAD, UNILAT IMPRESSION: Unremarkable diagnostic mammogram. OVERALL FINAL ASSESSMENT BI-RADS 1: NEGATIVE RECOMMENDATION: Routine annual follow-up in 1 Year Additional Recommendation none A letter with findings and recommendations will be mailed to the patient. Reading Location: [facility]
== END | disposition home or self-care (01) ==
LOC: OPBI 08:56
PROVIDERS: PCP Family Medicine; Referring Provider Family Medicine; Visit Provider Family Medicine
DX: R92.8 Other abnormal and inconclusive findings on diagnostic imaging of breast (principal)
CPT/HCPCS: 77061; 77065; G0279